=== PATIENT | male | born 1950 | race Caucasian/White ===

== ENCOUNTER 2019-01-22 13:57 | Inpatient (IN) | payer BC, MEDICARE ==
[2019-01-22] MEDS ORDERED: NITROGLYCERIN OINT 1 INCH/GM PACKET TOPICAL STA (15:00)
[2019-01-22] MEDS ORDERED: ASPIRIN 81 MG PO STA (15:00)
--- NOTE | 2019-01-22 15:10 | ED ---
General Adult HPI - General Chief complaint: Chest Pain Stated complaint: Abnormal EKG sent by Time Seen by Provider: 01/22/19 14:05 Source: patient, RN notes reviewed Mode of arrival: ambulatory Limitations: no limitations - History of Present Illness Initial comments: This is a 68-year-old male who presents emergency department with past medical history significant for heart attack in the past. Patient states he's been having intermittent chest pain over the last few weeks but today the pain got significant to the point where he thought he needed to be seen per patient states his pain reminded him of pain in his had the past when he had heart problem. Patient denies any radiation of the pain. Patient denies any difficulty breathing first breath per patient denies any diaphoretic episodes. Patient denies any nausea. Patient denies abdominal pain. Patient denies vomiting diarrhea per patient denies any recent fever chills or cough. Patient denies any calf pain or leg swelling. - Related Data Home Medications Medication Instructions Recorded Confirmed Aspirin EC [Ecotrin Low Dose] 81 mg PO DAILY 01/22/19 01/22/19 Atenolol [Tenormin] 25 mg PO DAILY 01/22/19 01/22/19 Atorvastatin [Lipitor] 20 mg PO DAILY 01/22/19 01/22/19 Cyanocobalamin [Vitamin B-12] 500 mcg PO DAILY 01/22/19 01/22/19 Ibuprofen [Motrin Ib] 200 mg PO Q6HR PRN 01/22/19 01/22/19 Allergies Allergy/AdvReac Type Severity Reaction Status Date / Time No Known Allergies Allergy Verified 01/22/19 15:58 Review of Systems ROS Statement: Those systems with pertinent positive or pertinent negative responses have been documented in the HPI. ROS Other: All systems not noted in ROS Statement are negative. Past Medical History Past Medical History: Coronary Artery Disease (CAD), Hyperlipidemia, Myocardial Infarction ([place]) History of Any Multi-Drug Resistant Organisms: None Reported Past Surgical History: Heart Catheterization With Stent Additional Past Surgical History / Comment(s): club foot surgery Past Psychological History: No Psychological Hx Reported Smoking Status: Former smoker Past Alcohol Use History: None Reported Past Drug Use History: None Reported General Exam - General Exam Comments Initial Comments: GENERAL: Patient is well-developed and well-nourished. Patient is nontoxic and well- hydrated and is in no acute distress. ENT: Neck is soft and supple. No significant lymphadenopathy is noted. Oropharynx is clear. Moist mucous membranes. Neck has full range of motion without eliciting any pain. EYES: The sclera were anicteric and conjunctiva were pink and moist. Extraocular movements were intact and pupils were equal round and reactive to light. Eyelids were unremarkable. PULMONARY: Unlabored respirations. Good breath sounds bilaterally. No audible rales rhonchi or wheezing was noted. CARDIOVASCULAR: There is a regular rate and rhythm without any murmurs gallops or rubs. ABDOMEN: Soft and nontender with normal bowel sounds. No palpable organomegaly was noted. There is no palpable pulsatile mass. SKIN: Skin is clear with no lesions or rashes and otherwise unremarkable. NEUROLOGIC: Patient is alert and oriented x3. Cranial nerves II through XII are grossly intact. Motor and sensory are also intact. Normal speech, volume and content. Symmetrical smile. MUSCULOSKELETAL: Normal extremities with adequate strength and full range of motion. LYMPHATICS: No significant lymphadenopathy is noted PSYCHIATRIC: Normal psychiatric evaluation. Limitations: no limitations Course Vital Signs 01/22/19 01/22/19 01/22/19 14:05 15:14 16:00 Temperature 97.8 F Pulse Rate 67 67 66 Respiratory 18 18 18 Rate Blood Pressure 149/81 141/82 123/68 O2 Sat by Pulse 96 96 96 Oximetry Medical Decision Making - Medical Decision Making EKG shows sinus rhythm at [address] interval 216 QT interval is 402 QTC is 427 QRS is 92 per patient's EKG shows no ST segment elevation or depression or T wave abnormalities are noted. Chest x-ray shows no acute normalities. Patient was started on heparin for the unstable angina. I spoke with some physicians he agreed to admit the patient admitted the patient I continued heparin Nitropaste and aspirin on the floor. I consult cardiology - Lab Data Result diagrams: 01/22/19 15:42 01/22/19 15:42 Lab Results 01/22/19 01/22/19 01/22/19 Range/Units 15:42 15:42 15:42 WBC 6.6 (3.8-10.6) k/uL RBC 5.36 (4.30-5.90) m/uL Hgb 15.8 (13.0-17.5) gm/dL Hct 45.0 (39.0-53.0) % MCV 83.9 (80.0-100.0) fL MCH 29.5 (25.0-35.0) pg MCHC 35.2 (31.0-37.0) g/dL RDW 14.2 (11.5-15.5) % Plt Count 203 (150-450) k/uL Neutrophils % 64 % Lymphocytes % 21 % Monocytes % 7 % Eosinophils % 4 % Basophils % 0 % Neutrophils # 4.3 (1.3-7.7) k/uL Lymphocytes # 1.4 (1.0-4.8) k/uL Monocytes # 0.5 (0-1.0) k/uL Eosinophils # 0.3 (0-0.7) k/uL Basophils # 0.0 (0-0.2) k/uL PT 10.9 (9.0-12.0) sec INR 1.0 (<1.2) APTT 26.2 (22.0-30.0) sec Sodium 138 (137-145) mmol/L Potassium 4.7 (3.5-5.1) mmol/L Chloride 103 (98-107) mmol/L Carbon Dioxide 27 (22-30) mmol/L Anion Gap 8 mmol/L BUN 20 (9-20) mg/dL Creatinine 1.00 (0.66-1.25) mg/dL Est GFR (CKD-EPI)AfAm 88 (>60 ml/min/1.73 sqM) Est GFR (CKD-EPI)NonAf 77 (>60 ml/min/1.73 sqM) Glucose 97 (74-99) mg/dL Calcium 9.4 (8.4-10.2) mg/dL Magnesium 2.1 (1.6-2.3) mg/dL Total Bilirubin 0.9 (0.2-1.3) mg/dL AST 34 (17-59) U/L ALT 37 (21-72) U/L Alkaline Phosphatase 64 (38-126) U/L Troponin I (0.000-0.034) ng/mL Total Protein 7.3 (6.3-8.2) g/dL Albumin 4.2 (3.5-5.0) g/dL 01/22/19 Range/Units 15:42 WBC (3.8-10.6) k/uL RBC (4.30-5.90) m/uL Hgb (13.0-17.5) gm/dL Hct (39.0-53.0) % MCV (80.0-100.0) fL MCH (25.0-35.0) pg MCHC (31.0-37.0) g/dL RDW (11.5-15.5) % Plt Count (150-450) k/uL Neutrophils % % Lymphocytes % % Monocytes % % Eosinophils % % Basophils % % Neutrophils # (1.3-7.7) k/uL Lymphocytes # (1.0-4.8) k/uL Monocytes # (0-1.0) k/uL Eosinophils # (0-0.7) k/uL Basophils # (0-0.2) k/uL PT (9.0-12.0) sec INR (<1.2) APTT (22.0-30.0) sec Sodium (137-145) mmol/L Potassium (3.5-5.1) mmol/L Chloride (98-107) mmol/L Carbon Dioxide (22-30) mmol/L Anion Gap mmol/L BUN (9-20) mg/dL Creatinine (0.66-1.25) mg/dL Est GFR (CKD-EPI)AfAm (>60 ml/min/1.73 sqM) Est GFR (CKD-EPI)NonAf (>60 ml/min/1.73 sqM) Glucose (74-99) mg/dL Calcium (8.4-10.2) mg/dL Magnesium (1.6-2.3) mg/dL Total Bilirubin (0.2-1.3) mg/dL AST (17-59) U/L ALT (21-72) U/L Alkaline Phosphatase (38-126) U/L Troponin I <0.012 (0.000-0.034) ng/mL Total Protein (6.3-8.2) g/dL Albumin (3.5-5.0) g/dL Critical Care Time Critical Care Time: Yes Total Critical Care Time: 35 Disposition Clinical Impression: Unstable angina pectoris Disposition: ADMITTED IP TO THIS HOSP Is patient prescribed a controlled substance at d/c from ED?: No Referrals: Oscar Spence MD [Primary Care Provider] - 1-2 days Time of Disposition: 16:36
--- NOTE | 2019-01-22 16:07 | XR ---
EXAMINATION TYPE: XR chest 2V DATE OF EXAM: 01/22/2019 COMPARISON: NONE HISTORY: Chest pain TECHNIQUE: Frontal and lateral views of the chest are obtained. FINDINGS: Strand-like densities are present at the left lung base likely reflects scarring. Aorta is dense. There are cardiac leads. There is no focal air space opacity, pleural effusion, or pneumothora x seen. The cardiac silhouette size is within normal limits. The osseous structures are intact. IMPRESSION: Probable subsegmental atelectasis or scarring.
[2019-01-22 16:14] LABS: Partial Thromboplastin Time 26.2 sec (22.0-30.0); Prothrombin Time 10.9 sec (9.0-12.0)
[2019-01-22 16:15] LABS: Albumin 4.2 g/dL (3.5-5.0); Calcium 9.4 mg/dL (8.4-10.2); Magnesium 2.1 mg/dL (1.6-2.3); Potassium 4.7 mmol/L (3.5-5.1); Total Bilirubin 0.9 mg/dL (0.2-1.3); Total Protein 7.3 g/dL (6.3-8.2)
[2019-01-22 16:22] LABS: Basophils % (A) 0 %; Eosinophils # (A) 0.3 k/uL (0-0.7); Eosinophils % (A) 4 %; HGB 15.8 gm/dL (13.0-17.5); Lymphocytes # (A) 1.4 k/uL (1.0-4.8); Lymphocytes % (A) 21 %; MCH 29.5 pg (25.0-35.0); MCHC 35.2 g/dL (31.0-37.0); MCV 83.9 fL (80.0-100.0); Mean Platelet Volume 6.9; Monocytes # (A) 0.5 k/uL (0-1.0); Monocytes % (A) 7 %; Neutrophils # (A) 4.3 k/uL (1.3-7.7); Neutrophils % (A) 64 %; Platelet Count 203 k/uL (150-450); RBC 5.36 m/uL (4.30-5.90); RDW 14.2 % (11.5-15.5); WBC 6.6 k/uL (3.8-10.6)
[2019-01-22] MEDS ORDERED: HEPARIN SODIUM,PORCINE 5,000 UNIT/ML 1 ML VIAL IV ONE (16:34)
[2019-01-22] MEDS ORDERED: NITROGLYCERIN SL TABS 0.4 MG TAB SUBLINGUAL PRN (16:37)
[2019-01-22] MEDS ORDERED: NALOXONE 0.4 MG/ML 1 ML VIAL IV PRN (16:54)
[2019-01-22] MEDS ORDERED: MORPHINE SULFATE 2 MG/ML SYRINGE IV PRN (16:54)
[2019-01-22] MEDS: HEPARIN SOD,PORK IN 0.45% NACL 25,000 UNIT in 0.45% NACL 1 250ML.BAG IV SCH (17:02)
--- NOTE | 2019-01-22 18:36 | P.HPIM ---
History of Present Illness H&P Date: 01/22/19 Chief Complaint: Chest pain 68-year-old male with PMH of HI, status post dental presents the ED for feelings of chest discomfort. Patient denies any chest pain. Patient describes his chest discomfort as "indigestion", and "uncomfortable feeling". Patient reports suffering an HI 15 years ago status post, had similar symptoms during that time. Patient reports taking a nitro tablet which resolved all symptoms. This prompted him to come to go to his PCPs clinic. An EKG was performed to Dr. House's office, found to be abnormal. Patient denies any headache, lower extremity edema, nausea, vomiting, fever, cough, chest pain, shortness of breath, palpitations, changes in urination or bowel habits. Of note, patient reports having a bout of pneumonia 2 weeks ago that was treated with antibiotics by mouth. CBC and CMP were unremarkable. Troponin is less than 0.012, EKG showing sinus rhythm with first-degree AV block. Chest pressure negative for acute process. Review of Systems All systems: negative Past Medical History Past Medical History: Coronary Artery Disease (CAD), Hyperlipidemia, Myocardial Infarction ([place]) History of Any Multi-Drug Resistant Organisms: None Reported Past Surgical History: Heart Catheterization With Stent Additional Past Surgical History / Comment(s): club foot surgery Past Psychological History: No Psychological Hx Reported Smoking Status: Former smoker Past Alcohol Use History: None Reported Past Drug Use History: None Reported Medications and Allergies Home Medications Medication Instructions Recorded Confirmed Type Aspirin EC [Ecotrin Low Dose] 81 mg PO DAILY 01/22/19 01/22/19 History Atenolol [Tenormin] 25 mg PO DAILY 01/22/19 01/22/19 History Atorvastatin [Lipitor] 20 mg PO DAILY 01/22/19 01/22/19 History Cyanocobalamin [Vitamin B-12] 500 mcg PO DAILY 01/22/19 01/22/19 History Ibuprofen [Motrin Ib] 200 mg PO Q6HR PRN 01/22/19 01/22/19 History Allergies Allergy/AdvReac Type Severity Reaction Status Date / Time No Known Allergies Allergy Verified 01/22/19 15:58 Physical Exam Vitals: Vital Signs Temp Pulse Resp BP Pulse Ox 01/22/19 17:01 62 16 113/68 98 01/22/19 16:00 66 18 123/68 96 01/22/19 15:14 67 18 141/82 96 01/22/19 14:05 97.8 F 67 18 149/81 96 Intake and Output 01/22/19 01/22/19 01/22/19 06:59 14:59 22:59 Other: Weight 115.212 kg General: [non toxic], [no distress], [appears at stated age] Derm: [warm], [dry] Head: [atraumatic], [normocephalic], [symmetric] Eyes: [EOMI], [no lid lag], [anicteric sclera] Mouth: [no lip lesion], [mucus membranes moist] Cardiovascular: [S1S2 reg], [no murmur], [positive posterior tibial pulse bilateral], Lungs: [CTA bilateral], [no rhonchi, no rales] , [no accessory muscle use] Abdominal: [soft], [ nontender to palpation], [no guarding], [no appreciable organomegaly] Ext: [no gross muscle atrophy], [no edema], [no contractures] Neuro: [ CN II-XI grossly intact], [no focal neuro deficits] Psych: [Alert], [oriented], [appropriate affect] Results CBC & Chem 7: 01/22/19 15:42 01/22/19 15:42 Thrombosis Risk Factor Assmnt - Choose All That Apply Any of the Below Risk Factors Present?: Yes Each Factor Represents 1 point: Obesity (BMI >25) Each Risk Factor Represents 2 Points: Age 61-74 years Thrombosis Risk Factor Assessment Total Risk Factor Score: 3 Thrombosis Risk Factor Assessment Level: Moderate Risk Assessment and Plan Assessment: Assessment and Plan 1. Chest pain 2. Hypertension 3. Hyperlipidemia 1. Described as indigestion but with risk factors. Troponin less than 0.02, EKG showing sinus rhythm with first-degree AV block. Chest x-ray negative for acute process. Trend 2 troponin/EKG to rule out ACS. Follow-up echocardiogram results. Telemetry monitoring. Start heparin drip. Pain management with Nitrostat, morphine. Follow cardiology consult 2. BP 123/68. Continue atenolol. Monitor vitals, adjust medications as necessary. 3. Follow lipid panel. Start Lipitor 20 mg by mouth daily. Patient minute for chest pain, rule out acute coronary syndrome. Cardiology on consult. Patient like to remain full code.
[2019-01-22] MEDS: NITROGLYCERIN OINT 1 INCH/GM PACKET TOPICAL SCH ×2 (18:55→23:45)
[2019-01-22] MEDS ORDERED: HEPARIN SODIUM,PORCINE 5,000 UNIT/ML 1 ML VIAL IV PRN (23:19)
[2019-01-23] MEDS: NITROGLYCERIN OINT 1 INCH/GM PACKET TOPICAL SCH ×3 (06:43→18:19)
[2019-01-23 06:55] LABS: Cholesterol 115 mg/dL (<200); HDL Cholesterol 38 mg/dL (40-60); LDL Cholesterol,Calculated 59 mg/dL (0-99); Triglycerides 92 mg/dL (<150)
--- NOTE | 2019-01-23 08:25 | P.PN ---
Subjective Progress Note Date: 01/23/19 Principal diagnosis: Chest discomfort Patient was seen and examined. No acute events overnight. Patient reports resolution of his chest discomfort. No shortness of breath or palpitations. No nausea or vomiting. He denies any chest pain. Objective - Vital Signs Vital signs: Vital Signs Temp 97.5 F L 01/23/19 08:00 Pulse 67 01/23/19 08:00 Resp 18 01/23/19 08:00 BP 113/66 01/23/19 08:00 Pulse Ox 97 01/23/19 08:00 Intake & Output 01/22/19 01/23/19 01/23/19 18:59 06:59 18:59 Intake Total 67.167 Balance 67.167 Weight 115.212 kg Intake: Intake, IV Titration 67.167 Amount Heparin Sod,Pork in 0.45% 67.167 NaCl 25,000 unit In 0.45 % NaCl 1 250ml.bag @ 8.68 UNITS/KG/HR 10 mls/hr IV .Q24H [facility] Rx#:[id number] Other: # Voids 2 - Exam General: [non toxic], [no distress], [appears at stated age] Derm: [warm], [dry] Head: [atraumatic], [normocephalic], [symmetric] Eyes: [EOMI], [no lid lag], [anicteric sclera] Mouth: [no lip lesion], [mucus membranes moist] Cardiovascular: [S1S2 reg], [no murmur], [positive posterior tibial pulse bilateral], Lungs: [CTA bilateral], [no rhonchi, no rales] , [no accessory muscle use] Abdominal: [soft], [ nontender to palpation], [no guarding], [no appreciable organomegaly] Ext: [no gross muscle atrophy], [no edema], [no contractures] Neuro: [no focal neuro deficits] Psych: [Alert], [oriented], [appropriate affect] - Labs CBC & Chem 7: 01/22/19 15:42 01/22/19 15:42 Labs: Abnormal Lab Results - Last 24 Hours (Table) 01/22/19 01/23/19 01/23/19 Range/Units 22:31 05:43 05:43 APTT 45.6 H 70.2 H (22.0-30.0) sec HDL Cholesterol 38 L (40-60) mg/dL Assessment and Plan Assessment: Assessment and Plan 1. Chest pain 2. Hypertension 3. Hyperlipidemia 1. Described as indigestion but with risk factors. Troponin less than 0.012 3, EKG showing sinus rhythm with first-degree AV block. Chest x-ray negative for acute process. ACS ruled out. Follow-up echocardiogram results. Telemetry monitoring. Start heparin drip. Pain management with Nitrostat, morphine. Discuss with cardiology Dr. Biggs, plans for angiogram later today or tomorrow. 2. BP 113/66. Continue atenolol. Monitor vitals, adjust medications as necessary. 3. Lipid panel is within normal limits with LDL 59. Start Lipitor 20 mg by mouth daily. Discussed with cardiology, plans for coronary catheterization either today or tomorrow.
[2019-01-23] MEDS ORDERED: ATORVASTATIN 40 MG TAB PO SCH (09:00)
[2019-01-23] MEDS ORDERED: ATORVASTATIN 20 MG TAB PO SCH (09:00)
[2019-01-23] MEDS: ATENOLOL 25 MG TAB PO SCH (09:01)
[2019-01-23] MEDS: ASPIRIN 325 MG TAB PO SCH (09:01)
--- NOTE | 2019-01-23 09:49 | P.CRDCN ---
History of Present Illness Consult date: 01/23/19 Consult reason: chest pain History of present illness: HPI: Patient is a 68-year-old male with past medical history of coronary artery di sease status post stenting, hypertension, and dyslipidemia, who presents with new onset of epigastric pain. This had been going on for several days therefore he went to his primary care physician's office and due to abnormal EKG, he was sent to the emergency room. His chest pain improved with sublingual nitroglycerin that was , incompletely resolved with Nitropaste in the emergency room. Troponins were negative 3. EKG showed sinus rhythm with first-degree AV block, no acute ST or T-wave changes. He states the chest discomfort that he had been feeling was similar to the sensation prior to his previous stent was 15 years ago, however that pain also worsened with exertion. On exam he is resting comfortably and has been without any chest discomfort. He feels as though he could walk the halls today without any symptoms. He initially followed with a cat scan tech out of [place] however he has not seen him in several years due to being asymptomatic. He does report that he takes aspirin and a statin every day. PAST MEDICAL HISTORY: CAD status post stenting, hypertension, dyslipidemia REVIEW OF SYSTEMS: No Fever or chills. No cough or expectoration. No diaphoresis. Patient denies headache, dizziness, blurred vision, double vision. Patient denies any stomach discomfort. No nausea, vomiting. No hematochezia. No hematemesis. Denies any black stools or blood in his stools. Denies dysuria or hematuria. No muscle weakness or numbness. PHYSICAL EXAMINATION: This is a 68-year-old male in no apparent distress at the time of my examination. HEENT: Head is atraumatic, normocephalic. Pupils are equal, round. Sclerae anicteric. Conjunctivae are clear. Mucous membranes of the mouth are moist. Neck is supple. There is no jugular venous distention. No carotid bruit is heard. CHEST EXAMINATION: Lungs are clear to auscultation. No chest wall tenderness is noted on palpation or with deep breathing. HEART EXAMINATION: Heart regular rate and rhythm. S1, S2 heard. No murmurs, gallops or rub. ABDOMEN: Soft, nontender. Bowel sounds are heard. No organomegaly noted. EXTREMITIES: 2+ peripheral pulses with no evidence of peripheral edema and no calf tenderness noted. NEUROLOGIC EXAMINATION: Patient is awake, alert and oriented x3. LABORATORY DATA: Troponins negative 3, HDL 38, LDL 59, triglycerides 92, sodium 138 potassium 147, creatinine 1.0, magnesium 2.1. . Past Medical History Past Medical History: Coronary Artery Disease (CAD), Hyperlipidemia, Myocardial Infarction ([place]) Last Myocardial Infarction Date:: 2003 History of Any Multi-Drug Resistant Organisms: None Reported Past Surgical History: Heart Catheterization With Stent Additional Past Surgical History / Comment(s): club foot surgery, colonoscopy Past Anesthesia/Blood Transfusion Reactions: No Reported Reaction Date of Last Stent Placement:: 2003 Past Psychological History: No Psychological Hx Reported Smoking Status: Former smoker Past Alcohol Use History: None Reported Additional Past Alcohol Use History / Comment(s): pt smoked ocassionaly as a teen Past Drug Use History: None Reported - Past Family History Father Additional Family Medical History / Comment(s): father of cardiac occulsion Medications and Allergies Home Medications Medication Instructions Recorded Confirmed Type Aspirin EC [Ecotrin Low Dose] 81 mg PO DAILY 01/22/19 01/22/19 History Atenolol [Tenormin] 25 mg PO DAILY 01/22/19 01/22/19 History Atorvastatin [Lipitor] 20 mg PO DAILY 01/22/19 01/22/19 History Cyanocobalamin [Vitamin B-12] 500 mcg PO DAILY 01/22/19 01/22/19 History Ibuprofen [Motrin Ib] 200 mg PO Q6HR PRN 01/22/19 01/22/19 History Allergies Allergy/AdvReac Type Severity Reaction Status Date / Time No Known Allergies Allergy Verified 01/22/19 15:58 Physical Exam Vitals: Vital Signs Temp Pulse Pulse Resp BP BP Pulse Ox 01/23/19 08:00 97.5 F L 67 18 113/66 97 01/23/19 04:00 63 18 01/23/19 03:57 98.5 F 63 18 111/62 96 01/23/19 00:00 98.5 F 67 16 116/67 97 01/22/19 23:28 59 L 18 01/22/19 20:00 59 L 18 01/22/19 18:31 97.9 F 59 L 18 136/78 100 01/22/19 17:01 62 16 113/68 98 01/22/19 16:00 66 18 123/68 96 01/22/19 15:14 67 18 141/82 96 01/22/19 14:05 97.8 F 67 18 149/81 96 Intake and Output 01/22/19 01/23/19 01/23/19 22:59 06:59 14:59 Intake Total 67.167 Balance 67.167 Intake: Intake, IV Titration 67.167 Amount Heparin Sod,Pork in 0.45% 67.167 NaCl 25,000 unit In 0.45 % NaCl 1 250ml.bag @ 8.68 UNITS/KG/HR 10 mls/hr IV .Q24H [facility] Rx#:[id number] Other: Voiding Method Toilet # Voids 2 Results 01/22/19 15:42 01/22/19 15:42 Cardiac Enzymes 01/22/19 01/22/19 01/22/19 Range/Units 15:42 15:42 22:31 AST 34 (17-59) U/L Troponin I <0.012 <0.012 (0.000-0.034) ng/mL 01/23/19 Range/Units 03:25 AST (17-59) U/L Troponin I <0.012 (0.000-0.034) ng/mL Coagulation 01/22/19 01/22/19 01/23/19 Range/Units 15:42 22:31 05:43 PT 10.9 (9.0-12.0) sec APTT 26.2 45.6 H 70.2 H (22.0-30.0) sec Lipids 01/23/19 Range/Units 05:43 Triglycerides 92 (<150) mg/dL Cholesterol 115 (<200) mg/dL HDL Cholesterol 38 L (40-60) mg/dL CBC 01/22/19 Range/Units 15:42 WBC 6.6 (3.8-10.6) k/uL RBC 5.36 (4.30-5.90) m/uL Hgb 15.8 (13.0-17.5) gm/dL Hct 45.0 (39.0-53.0) % Plt Count 203 (150-450) k/uL Comprehensive Metabolic Panel 01/22/19 Range/Units 15:42 Sodium 138 (137-145) mmol/L Potassium 4.7 (3.5-5.1) mmol/L Chloride 103 (98-107) mmol/L Carbon Dioxide 27 (22-30) mmol/L BUN 20 (9-20) mg/dL Creatinine 1.00 (0.66-1.25) mg/dL Glucose 97 (74-99) mg/dL Calcium 9.4 (8.4-10.2) mg/dL AST 34 (17-59) U/L ALT 37 (21-72) U/L Alkaline Phosphatase 64 (38-126) U/L Total Protein 7.3 (6.3-8.2) g/dL Albumin 4.2 (3.5-5.0) g/dL Current Medications Generic Name Dose Route Start Last Admin Trade Name Freq PRN Reason Stop Dose Admin Aspirin 325 mg 01/23/19 09:00 01/23/19 09:01 Aspirin PO 325 mg DAILY [facility] Administration Atenolol 25 mg 01/23/19 09:00 01/23/19 09:01 Tenormin PO 25 mg DAILY [facility] Administration Atorvastatin Calcium 40 mg 01/23/19 09:00 01/23/19 09:01 Lipitor PO 40 mg DAILY [facility] Administration Heparin Sodium (Porcine) 0 unit 01/22/19 23:19 01/22/19 23:45 Heparin IV 2,875 unit PER PROTOCOL PRN Administration Low PTT Protocol Heparin Sodium/Sodium Chloride 250 mls @ 10 mls/hr 01/22/19 16:45 01/22/19 23:45 25,000 unit/ Sodium Chloride IV 10.68 units/kg/hr .Q24H [facility] 12.305 mls/hr Titration Protocol 8.68 UNITS/KG/HR Morphine Sulfate 2 mg 01/22/19 16:54 Morphine Sulfate (Inj) IV Q4HR PRN Severe Pain Naloxone HCl 0.2 mg 01/22/19 16:54 Narcan IV Q2M PRN Opioid Reversal Nitroglycerin 1 inch 01/22/19 18:00 01/23/19 06:43 Nitro-Bid Oint TOPICAL 1 inch Q6HR [facility] Administration Nitroglycerin 0.4 mg 01/22/19 16:37 Nitrostat SUBLINGUAL Q5M PRN Chest Pain Intake and Output 01/22/19 01/23/19 01/23/19 22:59 06:59 14:59 Intake Total 67.167 Balance 67.167 Intake: Intake, IV Titration 67.167 Amount Heparin Sod,Pork in 0.45% 67.167 NaCl 25,000 unit In 0.45 % NaCl 1 250ml.bag @ 8.68 UNITS/KG/HR 10 mls/hr IV .Q24H [facility] Rx#:[id number] Other: Voiding Method Toilet # Voids 2 01/22/19 15:42 01/22/19 15:42 EKG Interpretations (text) Sinus rhythm with no acute ST or T-wave changes. Assessment and Plan Plan: FINAL ASSESSMENT AND PLAN: 1. CAD status post stenting, unknown history as he followed with cat scan tech out of [facility]. 2. Chest discomfort, resolved with nitroglycerin. 3. Hypertension. 4. Dyslipidemia, LDL 59. PLAN: We will continue heparin drip and Nitropaste. Due to unknown history in last recent testing and symptoms similar prior to his previous stenting, we will proceed with coronary angiography. Dr. Nickerson will perform this procedure tomorrow morning. He will be nothing by mouth after midnight for this procedu re. We will also increase his atorvastatin 80 mg.
[2019-01-23] MEDS: HEPARIN SOD,PORK IN 0.45% NACL 25,000 UNIT in 0.45% NACL 1 250ML.BAG IV SCH (14:46)
[2019-01-24] MEDS: NITROGLYCERIN OINT 1 INCH/GM PACKET TOPICAL SCH ×3 (00:45→11:27)
[2019-01-24] MEDS: ASPIRIN 325 MG TAB PO SCH (06:59)
[2019-01-24] MEDS: ATORVASTATIN 80 MG TAB PO SCH (07:01)
[2019-01-24] MEDS ORDERED: HEPARIN SODIUM 1,000 UN/ML (10ML VL) ONE ×2 (07:14→08:31)
[2019-01-24] MEDS ORDERED: VERAPAMIL 2.5 MG/ML 2 ML AMP ONE (07:14)
[2019-01-24] MEDS ORDERED: LIDOCAINE 1% INJ 10MG/ML (20 ML MDV) ONE (07:14)
[2019-01-24] MEDS ORDERED: SODIUM CHLORIDE 0.9% 500 ML 500 ML IV ONE (07:30)
[2019-01-24] MEDS: MIDAZOLAM 2 MG/2 ML VIAL IV ONE ×2 (08:06→08:14)
[2019-01-24] MEDS ORDERED: LIDOCAINE 1% INJ 10MG/ML (20 ML MDV) SQ ONE (08:08)
[2019-01-24] MEDS: VERAPAMIL SYRINGE (5 MG/10 ML) INTRAARTER ONE ×2 (08:09→08:46)
[2019-01-24] MEDS ORDERED: HEPARIN SODIUM 1,000 UN/ML (10ML VL) IV ONE ×2 (08:10→08:37)
[2019-01-24] MEDS ORDERED: CLOPIDOGREL 75 MG TAB ONE (08:36)
[2019-01-24] MEDS ORDERED: CLOPIDOGREL 75 MG TAB PO ONE (08:40)
[2019-01-24] MEDS ORDERED: NITROGLYCERIN 1000MCG/10ML SYRINGE INTRACORON ONE (08:42)
[2019-01-24] MEDS ORDERED: IOPAMIDOL-370 125ML BTL INJ ONE (08:49)
[2019-01-24] MEDS ORDERED: ZOLPIDEM 5 MG TAB PO PRN (08:55)
[2019-01-24] MEDS ORDERED: MAG HYDROX/AL HYDROX/SIMETH 30 ML CUP PO PRN (08:55)
[2019-01-24] MEDS ORDERED: ATROPINE SULFATE 0.1 MG/ML 10ML SYRINGE IV PRN (08:55)
[2019-01-24] MEDS ORDERED: RX INFO: IV CONTRAST WAS GIVEN 1 EACH MISC MISCELLANE PRN (08:55)
[2019-01-24] MEDS ORDERED: NITROGLYCERIN SL TABS 0.4 MG TAB SUBLINGUAL PRN (08:55)
[2019-01-24] MEDS ORDERED: SODIUM CHLORIDE 0.9% 1,000 ML IV SCH (09:00)
[2019-01-24 09:23] LABS: Glucose,Whole Blood 98 mg/dL (75-99)
--- NOTE | 2019-01-24 09:36 | CC ---
CARDIAC CATHETERIZATION REPORT DATE OF SERVICE: January 24, 2019 PERFORMING PHYSICIAN: Vikas Nickerson MD, slp. PROCEDURE PERFORMED: 1. Selective right and left coronary angiogram. 2. Left heart catheterization. 3. Fractional flow reserve FFR of the LAD. 4. Successful stenting of the mid to distal LAD using 2.25 x 15 mm Xience drug-eluting stent with an excellent angiographic results and reduction of stenosis from 70% to 0%. INDICATION: This is a 68-year-old gentleman with history of coronary artery disease and prior stenting of the LAD as well as hypertension and dyslipidemia who presented to the hospital with symptoms of indigestion, reminded him with what he had before the last coronary stenting. The symptoms are of new onset and intermittent and sometimes exertional. The patient was seen and evaluated by Dr. Biggs who recommended proceeding with a coronary angiogram. APPROACH: Right radial artery. COMPLICATION: None. LEVEL OF SEDATION: Moderate with sedation length of 42 minutes. PROCEDURE DESCRIPTION: After obtaining an informed consent, the patient was brought to the cardiac cardiac catheterization technician. The right radial artery was cannulated using micropuncture technique, the micropuncture wire passed easily then I placed a 6-Tajik sheath, 11 cm in the right radial artery. I did give the patient 2 mg of verapamil IA and 10,000 units of heparin IV. Additional 3000 units of heparin was given during the procedure with continuous ACT monitoring as well. After that, I did an FFR of the LAD as well as stenting of the LAD. Please see a separate paragraph for that. SELECTIVE CORONARY ANGIOGRAM: 1. The right coronary artery is a large caliber vessel. It is a dominant vessel and appeared to be angiographically normal. In the midportion gives rise into acute marginal branch, which seems to be angiographically normal and distally bifurcates into PDA and PLV branches both appeared to be angiographically normal. 2. The left main is angiographically normal. It bifurcates into left circumflex and left anterior descending artery. 3. The left circumflex is a large caliber vessel. It is a nondominant vessel. The proximal left circumflex appeared to be angiographically normal. It gives rise into the first and second obtuse marginal branches. The proximal portion of first and second obtuse marginal branches appeared to have disease in the range of 40% to 50% The left circumflex continues after that as a moderate caliber vessel in the AV groove. It distally gives rise into a small PDA branch. 4. The proximal LAD is stented. The stent has mild in-stent restenosis. The mid LAD appeared to be angiographically normal. The mid to distal LAD has a lesion appeared to be hazy, seems to be in the range of 60% to 70%. We did FFR that lesion and that came in to be ischemic and that will be explained in this report. HEMODYNAMICS: The left ventricular end-diastolic pressure was about 8 mmHg with mild gradient across the aortic valve. The peak to peak gradient across the valve was 8 mmHg. FFR OF THE LAD WELL PCI OF THE LAD: Anticoagulation was continued using the heparin with ACT checked before we inserted the wire as well as ACT was performed by the end of the procedure. We gave additional 3000 units of heparin IV. That was given at the beginning of the FFR. After that, after zeroing the Doppler wire and equalizing between the Doppler wire and the guiding catheter which was JL 3.5 guiding catheter, we did FFR per IV adenosine infusion and the FFR came in to be at 0.79 without even inducing hyperemia with adenosine. Because of that, I decided to stent the LAD. I did direct stenting of the LAD using 2.25 x 15 mm Xience drug-eluting stent where the stent was positioned under fluoroscopy guidance and deployed under 10 atmospheres for 20 seconds with the following angiogram showing good angiographic results with reduction of stenosis from 70% to 0%. At that point, the procedure was completed without any complication. CONCLUSION: 1. Patent stent in the proximal left anterior descending artery. 2. Intermediate to severe disease involving the mid to distal LAD. FFR was applied and came in to be ischemic at 0.79. 3. Successful stenting of the mid to distal LAD using 2.25 x 15 mm Xience FRANDY with good angiographic results and reduction of stenosis from 70% to 0%. 4. Normal left ventricular end-diastolic pressure. 5. Eight mmHg peak to peak gradient across the aortic valve consistent with possibly mild aortic stenosis. POSTPROCEDURE MANAGEMENT: 1. Maximize medical treatment. 2. Risk factors modifications. 3. Aggressive cholesterol control. 4. Dual anti-platelet therapy. 5. Standard right radial access care. 6. Follow up with the patient. MMODL / IJN: [id number] /
--- NOTE | 2019-01-24 09:41 | LTR ---
DATE OF SERVICE: January 24, [address] Spence: Mr. Mack Doyle presented to [facility] with chest discomfort and he underwent a heart catheterization and was found to have severe disease involving the mid to distal LAD where he underwent successful stenting of the mid to distal LAD with good angiographic results and without any complication. Thank you for allowing us to participate in his care and please do not hesitate to call if you have any questions or concerns. MMODL / IJN: [id number] /
[2019-01-24 10:37] VITALS: BMI 29.0
[2019-01-24] MEDS: ATENOLOL 25 MG TAB PO SCH (11:43)
--- NOTE | 2019-01-24 12:26 | P.CRDCN ---
History of Present Illness History of present illness: Patient is a 68-year-old male with past medical disease CAD status post stenting, presented to the hospital with new onset of epigastric pain that resolved with nitroglycerin. EKG showed sinus rhythm with first-degree AV block. Troponins were negative 3. Due to patient's symptoms being similar to his previous stent placement, we recommended coronary angiography. Dr. Nickerson performed the procedure showed a 40-50% lesions in the proximal portion of the first and second obtuse marginal branches; the proximal LAD stent has mild in stent restenosis; in the mid to distal LAD and a 60-70% lesion, and which FFR revealed ischemia. Stent was placed to the mid distal LAD with good angiogra phic results. Patient interviewed and examined. He states he is doing well. He denies any chest discomfort, dyspnea, palpitations, dizziness is, or vertigo. Right radial procedure site is currently covered with TR band. PHYSICAL EXAMINATION: HEENT: Head is atraumatic, normocephalic. Pupils are equal, round. Sclerae anicteric. Conjunctivae are clear. Mucous membranes of the mouth are moist. Neck is supple. There is no jugular venous distention. No carotid bruit is heard. CHEST EXAMINATION: Lungs are clear to auscultation. No chest wall tenderness is noted on palpation or with deep breathing. HEART EXAMINATION: Heart regular rate and rhythm. S1, S2 heard. No murmurs, gallops or rub. ABDOMEN: Soft, nontender. Bowel sounds are heard. No organomegaly noted. EXTREMITIES: 2+ peripheral pulses with no evidence of peripheral edema and no calf tenderness noted. NEUROLOGIC EXAMINATION: Patient is awake, alert and oriented x3. FINAL ASSESSMENT AND PLAN: Coronary artery disease, stent placed to mid-distal LAD Hypertension Dyslipidemia, LDL 59 PLAN: We will increase the dose of atorvastatin 80 mg. Continue Plavix and aspirin 325 mg. Will be discharged on aspirin 81 mg. Follow-up in office thereafter. Past Medical History Past Medical History: Coronary Artery Disease (CAD), Hyperlipidemia, Myocardial Infarction ([place]) Last Myocardial Infarction Date:: 2003 History of Any Multi-Drug Resistant Organisms: None Reported Past Surgical History: Heart Catheterization With Stent Additional Past Surgical History / Comment(s): club foot surgery, colonoscopy Past Anesthesia/Blood Transfusion Reactions: No Reported Reaction Date of Last Stent Placement:: 2003 Past Psychological History: No Psychological Hx Reported Smoking Status: Former smoker Past Alcohol Use History: None Reported Additional Past Alcohol Use History / Comment(s): pt smoked ocassionaly as a teen Past Drug Use History: None Reported - Past Family History Father Additional Family Medical History / Comment(s): father of cardiac occulsion Medications and Allergies Home Medications Medication Instructions Recorded Confirmed Type Aspirin EC [Ecotrin Low Dose] 81 mg PO DAILY 01/22/19 01/22/19 History Atenolol [Tenormin] 25 mg PO DAILY 01/22/19 01/22/19 History Atorvastatin [Lipitor] 20 mg PO DAILY 01/22/19 01/22/19 History Cyanocobalamin [Vitamin B-12] 500 mcg PO DAILY 01/22/19 01/22/19 History Ibuprofen [Motrin Ib] 200 mg PO Q6HR PRN 01/22/19 01/22/19 History Allergies Allergy/AdvReac Type Severity Reaction Status Date / Time No Known Allergies Allergy Verified 01/22/19 15:58 Physical Exam Vitals: Vital Signs Temp Pulse Resp BP Pulse Ox 01/24/19 07:08 97.3 F L 78 18 158/80 96 01/24/19 04:42 97.7 F 68 18 120/66 97 01/24/19 03:27 81 17 01/24/19 01:26 98.6 F 75 18 108/64 95 01/24/19 00:00 68 17 01/23/19 20:00 74 17 01/23/19 19:18 98.9 F 65 18 117/64 96 01/23/19 16:00 98.7 F 72 16 123/73 96 01/23/19 13:08 96 Intake and Output 01/23/19 01/24/19 01/24/19 22:59 06:59 14:59 Intake Total 200 Balance 200 Intake: IV 200 Other: Voiding Method Toilet Toilet Urinal # Voids 1 1 Weight 108.2 kg 108.2 kg Results 01/22/19 15:42 01/22/19 15:42 Current Medications Generic Name Dose Route Start Last Admin Trade Name Freq PRN Reason Stop Dose Admin Al Hydroxide/Mg Hydroxide 30 ml 01/24/19 08:55 Maalox PO Q4HR PRN Heartburn Aspirin 325 mg 01/23/19 09:00 01/24/19 06:59 Aspirin PO 325 mg DAILY [facility] Administration Atenolol 25 mg 01/23/19 09:00 01/24/19 11:43 Tenormin PO 25 mg DAILY [facility] Administration Atorvastatin Calcium 80 mg 01/24/19 09:00 01/24/19 07:01 Lipitor PO 80 mg DAILY [facility] Administration Atropine Sulfate 0.5 mg 01/24/19 08:55 Atropine IV ONCE PRN Symptomatic Bradycardia Clopidogrel Bisulfate 75 mg 01/25/19 09:00 Plavix PO DAILY [facility] Heparin Sodium (Porcine) 0 unit 01/22/19 23:19 01/22/19 23:45 Heparin IV 2,875 unit PER PROTOCOL PRN Administration Low PTT Protocol Sodium Chloride 1,000 mls @ 100 mls/hr 01/24/19 09:00 01/24/19 11:10 Saline 0.9% IV 01/24/19 14:01 Not Given .Q10H [facility] Miscellaneous Information 1 each 01/24/19 08:55 Rx Info: Iv Contrast Was Given MISCELLANE 01/26/19 08:55 DAILY PRN Per Protocol Morphine Sulfate 2 mg 01/22/19 16:54 Morphine Sulfate (Inj) IV Q4HR PRN Severe Pain Naloxone HCl 0.2 mg 01/22/19 16:54 Narcan IV Q2M PRN Opioid Reversal Nitroglycerin 0.4 mg 01/22/19 16:37 Nitrostat SUBLINGUAL Q5M PRN Chest Pain Zolpidem Tartrate 5 mg 01/24/19 08:55 Ambien PO HS PRN Insomnia Intake and Output 01/23/19 01/24/19 01/24/19 22:59 06:59 14:59 Intake Total 200 Balance 200 Intake: IV 200 Other: Voiding Method Toilet Toilet Urinal # Voids 1 1 Weight 108.2 kg 108.2 kg Patient Weight 01/25/19 06:59 Weight 108.2 kg 01/22/19 15:42 01/22/19 15:42
--- NOTE | 2019-01-24 15:10 | P.PN ---
Subjective Progress Note Date: 01/24/19 Principal diagnosis: chest discomfort Patient was seen and examined. No acute events overnight. Underwent cardiac cath this morning, stent placed. Patient with no complaints seen post cath. He denies any chest pain, shortness of breath or palpitations. Looking forward to going home. Objective - Vital Signs Vital signs: Vital Signs Temp 97.7 F 01/24/19 12:00 Pulse 65 01/24/19 12:00 Resp 16 01/24/19 12:00 BP 129/91 01/24/19 12:00 Pulse Ox 93 L 01/24/19 12:00 Intake & Output 01/23/19 01/24/19 01/24/19 18:59 06:59 18:59 Intake Total 182.833 200 Balance 182.833 200 Weight 108.2 kg 108.2 kg Intake: IV 200 Intake, IV Titration 182.833 Amount Heparin Sod,Pork in 0.45% 182.833 NaCl 25,000 unit In 0.45 % NaCl 1 250ml.bag @ 8.68 UNITS/KG/HR 10 mls/hr IV .Q24H [facility] Rx#:[id number] Other: Voiding Method Toilet Toilet Urinal # Voids 1 1 - Exam General: [non toxic], [no distress], [appears at stated age] Derm: [warm], [dry] Head: [atraumatic], [normocephalic], [symmetric] Eyes: [EOMI], [no lid lag], [anicteric sclera] Mouth: [no lip lesion], [mucus membranes moist] Cardiovascular: [S1S2 reg], [no murmur], [positive posterior tibial pulse bilateral], Lungs: [CTA bilateral], [no rhonchi, no rales] , [no accessory muscle use] Abdominal: [soft], [ nontender to palpation], [no guarding], [no appreciable organomegaly] Ext: [no gross muscle atrophy], [no edema], [no contractures] Neuro: [no focal neuro deficits] Psych: [Alert], [oriented], [appropriate affect] - Labs CBC & Chem 7: 01/22/19 15:42 01/22/19 15:42 Assessment and Plan Assessment: Assessment and Plan 1. Chest pain 2. Hypertension 3. Hyperlipidemia 1. Described as indigestion but with risk factors. Troponin less than 0.012 3, EKG showing sinus rhythm with first-degree AV block. Chest x-ray negative for acute process. ACS ruled out. Follow-up echocardiogram results. Telemetry monitoring. cardiac cath shows 40-50% lesion of the proximal first and second obtuse marginal, proximal LAD with in-stent restenosis and mid to distal LAD 60- 70% with FFR revealing ischemia, stent placed. DC heparin drip, start Plavix. Pain management with Nitrostat, morphine. Follow cardiology recommendations. 2. BP 129/91. Continue atenolol. Monitor vitals, adjust medications as necessary. 3. Lipid panel is within normal limits with LDL 59. increase to Lipitor 80 mg by mouth daily. Stent placed. Plans for DC tomorrow.
[2019-01-24 17:14] LABS: Glucose,Whole Blood 105 mg/dL (75-99)
[2019-01-25] MEDS ORDERED: CLOPIDOGREL 75 MG TAB PO SCH (09:00)
[2019-01-25 09:07] VITALS: RESP 12
[2019-01-25] MEDS: ASPIRIN 325 MG TAB PO SCH (09:08)
[2019-01-25] MEDS: ATENOLOL 25 MG TAB PO SCH (09:09)
[2019-01-25] MEDS: ATORVASTATIN 80 MG TAB PO SCH ×2 (09:10→09:15)
[2019-01-25 12:24] VITALS: BP 121/84; PULSE 73; TEMP 97.8
--- NOTE | 2019-01-25 15:09 | P.PN ---
Subjective Patient is doing well. No chest discomfort dizziness lightheadedness since yesterday. Sitting comfortably in a chair Vitals are stable afebrile 97.8F pulse rate in the 70s Blood pressure 121/84 mmHg Heart sounds sounds to normal no murmurs or gallops no rub Breath sounds are clear no rhonchi no crackles in an extended is warm no edema Impression Coronary artery disease status post stenting on this admission No evidence for acute myocardial infarction on admission Suggest Patient may be discharged home today.. He is stable from a cardiac standpoint. He should continue dual antiplatelet therapy with a baby aspirin and Plavix 75 mg daily, atorvastatin and metoprolol I will see him in the next 2 weeks Objective - Vital Signs Vital signs: Vital Signs Temp 97.8 F 01/25/19 12:00 Pulse 73 01/25/19 12:00 Resp 12 01/25/19 12:00 BP 121/84 01/25/19 12:00 Pulse Ox 97 01/25/19 13:28 Intake & Output 01/24/19 01/25/19 01/25/19 18:59 06:59 18:59 Intake Total 340 240 Output Total 320 350 Balance 20 -350 240 Weight 108.2 kg 110.5 kg Intake: IV 340 .9 20 140 Oral 240 Output: Urine 320 350 Other: Voiding Method Urinal Urinal Toilet # Voids 1 3 - Labs CBC & Chem 7: 01/22/19 15:42 01/25/19 04:24 Labs: Abnormal Lab Results - Last 24 Hours (Table) 01/24/19 Range/Units 17:11 POC Glucose (mg/dL) 105 H (75-99) mg/dL
[2019-01-26] MEDS ORDERED: ASPIRIN 81 MG PO SCH (09:00)
== END 2019-01-25 15:15 | disposition home or self-care (01) | DRG 247 ==
LOC: EC 13:57 → 1SOBS 16:46 → OBSVTOIN 01-23 14:58 → 2SICU 01-24 09:17
PROVIDERS: ADMIT Hospitalist; ATTEND Hospitalist
PROC: B2151ZZ Fluoroscopy of Left Heart using Low Osmolar Contrast (ICD-10-PCS; 2019-01-24)
PROC: 4A033BC Measurement of Arterial Pressure, Coronary, Percutaneous Approach (ICD-10-PCS; 2019-01-24)
PROC: 027034Z Dilation of Coronary Artery, One Artery with Drug-eluting Intraluminal Device, Percutaneous Approach (ICD-10-PCS; principal; 2019-01-24 07:18)
PROC: 4A023N7 Measurement of Cardiac Sampling and Pressure, Left Heart, Percutaneous Approach (ICD-10-PCS; 2019-01-24 07:18)
PROC: B2111ZZ Fluoroscopy of Multiple Coronary Arteries using Low Osmolar Contrast (ICD-10-PCS; 2019-01-24 07:18)
DX: I25.110 Atherosclerotic heart disease of native coronary artery with unstable angina pectoris (principal); T82.855A Stenosis of coronary artery stent, initial encounter; I10 Essential (primary) hypertension; I44.0 Atrioventricular block, first degree; Y83.1 Surgical operation with implant of artificial internal device as the cause of abnormal reaction of the patient, or of later complication, without mention of misadventure at the time of the procedure; Y71.2 Prosthetic and other implants, materials and accessory cardiovascular devices associated with adverse incidents; E78.5 Hyperlipidemia, unspecified; Z87.891 Personal history of nicotine dependence; I25.2 Old myocardial infarction; Z79.82 Long term (current) use of aspirin; Z79.899 Other long term (current) drug therapy; Z87.01 Personal history of pneumonia (recurrent); Z82.49 Family history of ischemic heart disease and other diseases of the circulatory system
CPT/HCPCS: 36415; 71046; 80053; 80061; 82565; 83735; 84484; 85025; 85347; 85610; 85730; 93005; 93458; 93571; 96365; 96376; 99291; C1874

== ENCOUNTER 2019-01-27 08:08 | Inpatient (IN) | payer MEDICARE ==
[2019-01-27] MEDS ORDERED: PANTOPRAZOLE 40 MG/10 ML VIAL IVP STA (08:38)
--- NOTE | 2019-01-27 08:43 | ED ---
General Adult HPI - General Chief complaint: Syncope Stated complaint: syncope, weakness Time Seen by Provider: 01/27/19 08:17 Source: patient, RN notes reviewed, old records reviewed Mode of arrival: wheelchair Limitations: no limitations - History of Present Illness Initial comments: 68-year-old male presenting for evaluation of syncope. Patient had 2 episodes of lightheadedness and collapse this morning. He is 4 days status post coronary angiography with stenting. He was placed on Plavix and additional to his normal aspirin. Denies chest pain or dyspnea. Denies fever or chills. Denies cough or URI symptoms. Denies abdominal pain nausea vomiting. Patient states he had one bowel movement which was hard and brown followed by dark stool. He has no previous history of peptic ulcer disease or gastrointestinal hemorrhage. - Related Data Home Medications Medication Instructions Recorded Confirmed Aspirin EC [Ecotrin Low Dose] 81 mg PO DAILY 01/22/19 01/27/19 Atenolol [Tenormin] 25 mg PO DAILY 01/22/19 01/27/19 Cyanocobalamin [Vitamin B-12] 500 mcg PO DAILY 01/22/19 01/27/19 Previous Rx's Medication Instructions Recorded Atorvastatin [Lipitor] 80 mg PO DAILY #30 tab 01/25/19 Clopidogrel [Plavix] 75 mg PO DAILY #30 tab 01/25/19 Nitroglycerin Sl Tabs [Nitrostat] 0.4 mg SUBLINGUAL Q5M PRN #25 tab 01/25/19 Allergies Allergy/AdvReac Type Severity Reaction Status Date / Time No Known Allergies Allergy Verified 01/27/19 08:55 Review of Systems ROS Statement: Those systems with pertinent positive or pertinent negative responses have been documented in the HPI. ROS Other: All systems not noted in ROS Statement are negative. Past Medical History Past Medical History: Coronary Artery Disease (CAD), Hyperlipidemia, Myocardial Infarction ([place]) Last Myocardial Infarction Date:: 2003 History of Any Multi-Drug Resistant Organisms: None Reported Past Surgical History: Heart Catheterization With Stent Additional Past Surgical History / Comment(s): club foot surgery, colonoscopy Past Anesthesia/Blood Transfusion Reactions: No Reported Reaction Date of Last Stent Placement:: 2003 Past Psychological History: No Psychological Hx Reported Smoking Status: Former smoker Past Alcohol Use History: None Reported Past Drug Use History: None Reported - Past Family History Father Additional Family Medical History / Comment(s): father of cardiac occulsion General Exam Limitations: no limitations General appearance: alert, in no apparent distress Head exam: Present: atraumatic, normocephalic Eye exam: Present: normal appearance, PERRL ENT exam: Present: normal exam Neck exam: Present: normal inspection Respiratory exam: Present: normal lung sounds bilaterally. Absent: respiratory distress, wheezes Cardiovascular Exam: Present: regular rate, normal rhythm GI/Abdominal exam: Present: soft. Absent: distended, tenderness, guarding Rectal exam: Present: normal inspection, normal rectal tone, black stool Extremities exam: Present: normal inspection, normal capillary refill. Absent: pedal edema Neurological exam: Present: alert, oriented X3, CN II-XII intact. Absent: motor sensory deficit Skin exam: Present: warm, dry, intact, pallor. Absent: cyanosis, diaphoretic Course Vital Signs 01/27/19 01/27/19 01/27/19 08:11 08:46 09:05 Temperature 97.8 F Pulse Rate 107 H 86 Pulse Rate [ 95 Sitting Driver Trainee] Pulse Rate [ 90 Supine Driver Trainee] Respiratory 16 18 Rate Blood Pressure 103/74 111/80 Blood Pressure 94/71 [Right Arm Sitting] Blood Pressure 61/32 [Right Arm Standing] Blood Pressure 124/79 [Right Arm Supine] O2 Sat by Pulse 98 98 Oximetry EKG Findings - EKG Comments: EKG Findings:: EKG: Normal sinus rhythm, rate of 92, AL interval 204, QRS duration 88, QTC 447, T waves are upright, no ST segment elevation or depression. Medical Decision Making - Medical Decision Making 68-year-old male presenting 3 days status post heart cath for evaluation of several episodes of syncope. Initial vital signs are stable, patient is pale, there is concern for GI bleed. Patient states that he was started on Plavix. He is currently on aspirin and Plavix. Patient has orthostatic hypotension. Hemoglobin is 13 5 from 5 days prior 15.8. He has elevated BUN. His stool is heme positive. Case is discussed with cardiology DR. Biggs given the need for antiplatelet therapy with recent stent. Case discussed with Dr. Gil, will evaluate the patient, states that patient can be continued on antiplatelet therapy. Diagnosis: GI bleed - Lab Data Result diagrams: 01/27/19 08:30 01/27/19 08:30 Lab Results 0401/27/19 01/27/19 Range/Units 08:30 08:30 08:35 WBC 12.7 H (3.8-10.6) k/uL RBC 4.58 (4.30-5.90) m/uL Hgb 13.5 (13.0-17.5) gm/dL Hct 39.0 (39.0-53.0) % MCV 85.0 (80.0-100.0) fL MCH 29.4 (25.0-35.0) pg MCHC 34.6 (31.0-37.0) g/dL RDW 13.5 (11.5-15.5) % Plt Count 296 (150-450) k/uL Neutrophils % 77 % Lymphocytes % 13 % Monocytes % 7 % Eosinophils % 1 % Basophils % 0 % Neutrophils # 9.7 H (1.3-7.7) k/uL Lymphocytes # 1.7 (1.0-4.8) k/uL Monocytes # 0.9 (0-1.0) k/uL Eosinophils # 0.1 (0-0.7) k/uL Basophils # 0.0 (0-0.2) k/uL Sodium 141 (137-145) mmol/L Potassium 4.3 (3.5-5.1) mmol/L Chloride 112 H (98-107) mmol/L Carbon Dioxide 19 L (22-30) mmol/L Anion Gap 10 mmol/L BUN 55 H (9-20) mg/dL Creatinine 0.99 (0.66-1.25) mg/dL Est GFR (CKD-EPI)AfAm 89 (>60 ml/min/1.73 sqM) Est GFR (CKD-EPI)NonAf 77 (>60 ml/min/1.73 sqM) Glucose 155 H (74-99) mg/dL Calcium 9.3 (8.4-10.2) mg/dL Magnesium 1.8 (1.6-2.3) mg/dL Total Bilirubin 0.7 (0.2-1.3) mg/dL AST 33 (17-59) U/L ALT 60 (21-72) U/L Alkaline Phosphatase 47 (38-126) U/L Total Protein 6.7 (6.3-8.2) g/dL Albumin 3.9 (3.5-5.0) g/dL Stool Occult Blood Positive (Negative) Critical Care Time Critical Care Time: Yes Total Critical Care Time: 35 Disposition Clinical Impression: GI bleed Disposition: ADMITTED IP TO THIS [facility] Condition: Stable Is patient prescribed a controlled substance at d/c from ED?: No Referrals: Oscar Spence MD [Primary Care Provider] - 1-2 days Decision to Admit Reason: Admit from EC Decision Date: 01/27/19 Decision Time: 09:19
[2019-01-27 08:46] LABS: Basophils % (A) 0 %; Eosinophils # (A) 0.1 k/uL (0-0.7); Eosinophils % (A) 1 %; HGB 13.5 gm/dL (13.0-17.5); Lymphocytes # (A) 1.7 k/uL (1.0-4.8); Lymphocytes % (A) 13 %; MCH 29.4 pg (25.0-35.0); MCHC 34.6 g/dL (31.0-37.0); Mean Platelet Volume 6.6; Monocytes # (A) 0.9 k/uL (0-1.0); Monocytes % (A) 7 %; Neutrophils # (A) 9.7 k/uL (1.3-7.7); Neutrophils % (A) 77 %; Platelet Count 296 k/uL (150-450); RBC 4.58 m/uL (4.30-5.90); RDW 13.5 % (11.5-15.5); WBC 12.7 k/uL (3.8-10.6)
[2019-01-27 08:56] LABS: Albumin 3.9 g/dL (3.5-5.0); Calcium 9.3 mg/dL (8.4-10.2); Magnesium 1.8 mg/dL (1.6-2.3); Potassium 4.3 mmol/L (3.5-5.1); Total Bilirubin 0.7 mg/dL (0.2-1.3); Total Protein 6.7 g/dL (6.3-8.2)
[2019-01-27] MEDS ORDERED: PANTOPRAZOLE 40 MG/10 ML VIAL IVP SCH (09:00)
[2019-01-27 09:06] LABS: INR 1.1 (<1.2); Partial Thromboplastin Time 21.8 sec (22.0-30.0); Prothrombin Time 11.2 sec (9.0-12.0)
[2019-01-27] MEDS ORDERED: ONDANSETRON 4 MG/2 ML VIAL IVP PRN (09:07)
[2019-01-27] MEDS ORDERED: NALOXONE 0.4 MG/ML 1 ML VIAL IV PRN (09:07)
[2019-01-27] MEDS: SODIUM CHLORIDE 0.9% 1,000 ML IV SCH (09:30)
--- NOTE | 2019-01-27 11:50 | P.CONS ---
History of Present Illness - Reason for Consult Consult date: 01/27/19 [facility] Requesting physician: Cory Harrison - Chief Complaint Melena - History of Present Illness 68-year-old gentleman with a history of CAD previous stenting recently hospital ized over the weekend with angina underwent heart catheterization with stent placement. Discharged home on aspirin Plavix. This morning patient was awakened early with 2 episodes of painless black colored bowel movements associated with lightheadedness and dizziness. Denies hematemesis or hematoc hezia. No history GI bleed. Admission hemoglobin 13.5. BUN 55. Creatinine 0.9. INR 1.1 platelet 296. FOBT positive. Patient states his past symptoms of angina usually are "heartburn" in nature which is what he was experiencing last week prior to his cardiac stent. Since his cardiac stent was placed he's had no recurrent episodes of indigestion shortness of breath or chest pain. Last colonoscopy 1 year ago to his memory was unremarkable no polyps removed. No history GI bleed alcohol or NSAID usage. No history of gastric or bowel surgeries. Review of Systems Constitutional: Denies fever, chills, sweats, weight gain, or loss. Admitted with lightheadedness dizziness. HEENT: Negative for migraines, blurred vision or loss, earaches, drainage, tinni tus, oral mucosal lesions, dysphagia, or odynophagia. Cardiac: Negative for chest pain, arrhythmias, or palpitation. Respiratory: Negative for shortness of breath, hemoptysis, cough, or sputum production. Gastrointestinal: See HPI for pertinent findings. Genitourinary: Negative for hematuria, urgency, frequency, polyuria, dysuria, or penile discharge. Musculoskeletal: Negative for muscle aches, swelling, arthritis, and arthralgias. Neurologic: Negative for stroke or TIA. Endocrine: Negative for thyroid problems. Skin: Negative for rash or itching. Psychiatric: Negative history for depression and anxiety Past Medical History Past Medical History: Coronary Artery Disease (CAD), Hyperlipidemia, Myocardial Infarction ([place]), Pneumonia Additional Past Medical History / Comment(s): Pt states he had recent pneumonia about 5 weeks ago, pt was told after echo that he has had a WI-age unknown. Last Myocardial Infarction Date:: unknown History of Any Multi-Drug Resistant Organisms: None Reported Past Surgical History: Heart Catheterization With Stent Additional Past Surgical History / Comment(s): 01/24/19 PCI with stent, 2003 PCI with stent, numerous bilateral club feet surgeries, colonoscopy Past Anesthesia/Blood Transfusion Reactions: No Reported Reaction Date of Last Stent Placement:: 01/24/19 Past Psychological History: No Psychological Hx Reported Additional Psychological History / Comment(s): Pt resides alone. 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 He is independent. Smoking Status: Former smoker Past Alcohol Use History: Rare Additional Past Alcohol Use History / Comment(s): pt smoked ocassionaly as a teen Past Drug Use History: None Reported - Past Family History Father Additional Family Medical History / Comment(s): Father of a WI at the age of 54yrs. Pt's paternal grandfather of a WI in his 60s Mother Additional Family Medical History / Comment(s): Mother had a hiatal hernia Medications and Allergies Home Medications Medication Instructions Recorded Confirmed Type Aspirin EC [Ecotrin Low Dose] 81 mg PO DAILY 01/22/19 01/27/19 History Atenolol [Tenormin] 25 mg PO DAILY 01/22/19 01/27/19 History Cyanocobalamin [Vitamin B-12] 500 mcg PO DAILY 01/22/19 01/27/19 History Atorvastatin [Lipitor] 80 mg PO DAILY #30 tab 01/25/19 01/27/19 Rx Clopidogrel [Plavix] 75 mg PO DAILY #30 tab 01/25/19 01/27/19 Rx Nitroglycerin Sl Tabs [Nitrostat] 0.4 mg SUBLINGUAL Q5M PRN #25 tab 01/25/19 01/27/19 Rx Allergies Allergy/AdvReac Type Severity Reaction Status Date / Time No Known Allergies Allergy Verified 01/27/19 08:55 Physical Exam Vitals: Vital Signs Temp Pulse Pulse Pulse Resp BP BP 01/27/19 10:19 86 20 108/72 01/27/19 09:05 86 18 111/80 01/27/19 08:46 95 90 94/71 01/27/19 08:11 97.8 F 107 H 16 103/74 BP BP Pulse Ox 01/27/19 10:19 100 01/27/19 09:05 98 01/27/19 08:46 61/32 124/79 01/27/19 08:11 98 Intake and Output 01/26/19 01/27/19 01/27/19 22:59 06:59 14:59 Other: Weight 97.522 kg General appearance: The patient is alert, oriented, in no acute distress. HET: Head is normocephalic and atraumatic. Pupils are equal and reactive. Oropharynx is clear without lesions. Neck: Supple without lymphadenopathy. Trachea midline. Heart: S1 S2. Regular rate and rhythm. Lungs: No crackles or wheezes are heard. Abdomen: Soft, nontender, nondistended with bowel sounds. No peritoneal signs. No palpable organomegaly or masses. Extremities: Normal skin color and turgor. No cyanosis, rash, ulceration, clubbing, or edema. Radial and pedal pulses are 2/4 bilaterally. Neurological: No focal deficits. Strength and sensation are grossly intact. Results CBC & Chem 7: 01/27/19 08:30 01/27/19 08:30 Labs: Abnormal Lab Results - Last 24 Hours (Table) 01/27/19 01/27/19 01/27/19 Range/Units 08:30 08:30 08:30 WBC 12.7 H (3.8-10.6) k/uL Neutrophils # 9.7 H (1.3-7.7) k/uL APTT 21.8 L (22.0-30.0) sec Chloride 112 H (98-107) mmol/L Carbon Dioxide 19 L (22-30) mmol/L BUN 55 H (9-20) mg/dL Glucose 155 H (74-99) mg/dL Assessment and Plan (1) Melena Narrative/Plan: 68-year-old gentleman recent cardiac stenting maintained on dual antiplatelet therapy presents with 2 episodes of melanotic bowel movements associated with lightheadedness dizziness possible peptic ulcer disease possible bleeding AVM possible small bowel source. Current Visit: Yes Status: Acute Code(s): K92.1 - MELENA SNOMED Code(s): 9070591 (2) Hx of heart artery stent Current Visit: Yes Status: Acute Code(s): Z95.5 - PRESENCE OF CORONARY ANGIOPLASTY IMPLANT AND GRAFT SNOMED Code(s): 850330158 (3) GI bleed Current Visit: Yes Status: Acute Code(s): K92.2 - GASTROINTESTINAL HEMORRHAGE, UNSPECIFIED SNOMED Code(s): 92145941 Plan: 1. Nothing by mouth except meds. EGD today. PPI daily. CBC monitoring. Continue present medical therapy. The business process specialist has discussed the risks, benefits and alternative therapies for the above-mentioned procedure and for both sedation/analgesia as well as necessary blood product administration, if indicated, as they pertain to this patient. The patient has indicated understanding and acceptance of the risks and procedures discussed. Thank you for this kind referral and the opportunity to participate in the care of your patient. This consultation was discussed with Dr. Gil. The impression and plan of care have been directed as dictated.
[2019-01-27] MEDS ORDERED: NITROGLYCERIN SL TABS 0.4 MG TAB SUBLINGUAL PRN (12:53)
[2019-01-27] MEDS ORDERED: IV FLUID CONTINUATION 1,000 ML IV ONE (14:53)
[2019-01-27] MEDS ORDERED: LIDOCAINE 1% INJ 10MG/ML (20 ML MDV) ONE (14:53)
[2019-01-27] MEDS ORDERED: PROPOFOL 10 MG/ML 20 ML VIAL IV ONE (14:53)
[2019-01-27] MEDS ORDERED: ePHEDrine SULFATE/0.9% NACL/PF 50 MG/5 ML SYRINGE IV ONE (14:53)
--- NOTE | 2019-01-27 15:42 | P.PCN ---
Date of Procedure: 01/27/19 Description of Procedure: BRIEF HISTORY: 68-year-old gentleman with a history of CAD previous stenting recently hospitalized over the weekend with angina underwent heart catheterization with stent placement. Discharged home on aspirin Plavix. This morning patient was awakened early with 2 episodes of painless black colored bowel movements associated with lightheadedness and dizziness. Denies hematemesis or hematochezia. No history GI bleed. Admission hemoglobin 13.5. BUN 55. Creatinine 0.9. INR 1.1 platelet 296. FOBT positive. Patient states his past symptoms of angina usually are "heartburn" in nature which is what he was experiencing last week prior to his cardiac stent. Since his cardiac stent was placed he's had no recurrent episodes of indigestion shortness of breath or chest pain. Last colonoscopy 1 year ago to his memory was unremarkable no polyps removed. No history GI bleed alcohol or NSAID usage. No history of gastric or bowel surgeries.. PROCEDURE PERFORMED: Esophagogastroduodenoscopy. PREOPERATIVE DIAGNOSIS: . ESTIMATED BLOOD LOSS: Minimal. IV sedation per anesthesia. PROCEDURE: After informed consent was obtained, the patient was brought into the endoscopy unit. IV sedation was administered by Anesthesia under continuous monitoring. Initially the Olympus GIF-190 video endoscope was inserted into the mouth. Esophagus intubated without any difficulty. It was gradually advanced into the stomach and duodenum and carefully examined. The bulb and the second part of the duodenum appeared normal. The scope at this time was withdrawn to the stomach, adequately insufflated with air, and the mucosa of the antrum, body, cardia and the fundus were examined. A large cratered antral ulcer with associated deformity of the antrum was noted with no active bleeding or old blood seen. In addition superficial erosions of the antrum and body with associated erythema were noted suggestive of moderate gastritis. There was no active bleeding and no biopsies were taken in the setting of anticoagulation/antiplatelet therapy. The scope was then withdrawn into the esophagus. The GE junction was located at 39 cm from the incisors. The esophagus appeared normal. There were no erosions or ulcerations seen and the patient tolerated the procedure well. IMPRESSION: 1. Large cratered antral ulcer with associated deformity, no active bleeding or high risk stigmata for rebleeding. 2. Moderate gastritis of the antrum and body. 3. No active bleeding or old blood noted. RECOMMENDATIONS: The findings of this examination were discussed with the patient in the emergency department team. Okay for liquids. Would keep the patient on twice daily IV PPI therapy. Continue to closely monitor hemoglobin and hematocrit and transfuse as needed. Continue to monitor for any signs or symptoms of GI bleeding. Okay to resume anticoagulation in the setting of recent stent placement.
[2019-01-27] MEDS: ATORVASTATIN 80 MG TAB PO SCH ×2 (16:53→16:59)
[2019-01-27] MEDS: ATENOLOL 25 MG TAB PO SCH ×2 (16:53→16:59)
[2019-01-27] MEDS: CYANOCOBALAMIN 500 MCG TAB PO SCH (16:59)
[2019-01-27 17:48] LABS: Basophils % (A) 0 %; Eosinophils # (A) 0.1 k/uL (0-0.7); Eosinophils % (A) 1 %; HCT 38.9 % (39.0-53.0); HGB 13.3 gm/dL (13.0-17.5); Lymphocytes # (A) 1.3 k/uL (1.0-4.8); Lymphocytes % (A) 11 %; MCH 29.8 pg (25.0-35.0); MCHC 34.1 g/dL (31.0-37.0); MCV 87.5 fL (80.0-100.0); Mean Platelet Volume 7.2; Monocytes # (A) 0.8 k/uL (0-1.0); Monocytes % (A) 6 %; Neutrophils # (A) 10.3 k/uL (1.3-7.7); Neutrophils % (A) 82 %; Platelet Count 269 k/uL (150-450); RBC 4.45 m/uL (4.30-5.90); RDW 14.3 % (11.5-15.5); WBC 12.6 k/uL (3.8-10.6)
--- NOTE | 2019-01-27 18:45 | HP ---
HISTORY AND PHYSICAL DATE OF ADMISSION: 01/27/2019 DATE OF SERVICE: 01/27/2019 PRESENTING COMPLAINT: Dark stool, dizzy. HISTORY OF PRESENTING COMPLAINT: This is a 68-year-old patient of Dr. Spence. The patient was just discharged from the hospital on 01/25/2019. The patient had a cardiac catheterization by Dr. Nickerson and was found to have significant disease in mid LAD. Successful stenting was carried out. The patient did have a discharge, for which patient was put on aspirin and Plavix. This morning in the early hours of the morning, the patient decided to get to the bathroom and he felt dizzy, lightheaded, and actually fell down. He did have a bowel movement. Initial one was a bit hard. Subsequent to that he had dark stools and then presented to the hospital. Patient's hemoglobin was 15.8 when he was discharged. It was 13.5 today. Earlier the patient did undergo EGD by Dr. Gil and was found to have a gastric antral ulcer with no obvious stigmata of bleed. He said it was okay to have the aspirin and Plavix resumed. The patient denies any chest pain or palpitations. There was no abdominal pain. REVIEW OF SYSTEMS: CONSTITUTIONAL: Tired. HEENT: None. RESPIRATORY: None. CARDIOVASCULAR: None. GASTROINTESTINAL: As above. GENITOURINARY: None. MUSCULOSKELETAL: None. DERMATOLOGICAL: None. HEMATOLOGICAL: None. LYMPHATICS: None. PSYCHIATRY: None. NEUROLOGICAL: None. PAST MEDICAL HISTORY: 1. Coronary artery disease with stent. 2. Hyperlipidemia. 3. Recent [place]. PAST SURGICAL HISTORY: 1. Cardiac cath with stent on 01/24/2019 to the LAD. 2. Numerous surgeries for bilateral clubfeet. SOCIAL HISTORY: Lives alone. 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 Does not smoke. Does not drink alcohol. FAMILY HISTORY: Mother of a heart attack at age of 54. HOME MEDICATIONS: 1. Nitrostat 0.4 sublingually q.5 p.r.n. 2. Vitamin B12, 500 mcg a day. 3. Plavix 75 mg a day. 4. Lipitor 80 mg a day. 5. Tenormin 25 mg a day. 6. Aspirin 81 mg a day. ALLERGIES: NONE. PHYSICAL EXAMINATION: VITAL SIGNS ON PRESENTATION: Temperature 97.8, pulse 107, respiration 16, blood pressure 103/74. Later on patient was significantly orthostatic, blood pressure down into the 60s systolic. Pulse ox 98% on room air. GENERAL APPEARANCE: Average build. Lying in bed, awake. EYES: Pupils equal. Conjunctivae normal. HEENT: External appearance of nose and ears normal. Oral cavity normal. NECK: JVD not raised. Mass not palpable. RESPIRATORY: Effort normal. Lungs are clear. CARDIOVASCULAR: First and second sounds normal. No edema. ABDOMEN: Soft, non-tender. Liver and spleen not palpable. PSYCHIATRY: Alert and oriented x3. Mood and affect normal. NEUROLOGICAL: Pupils equal. Cranial nerves grossly intact. Power and sensation grossly intact. INVESTIGATIONS: White count 12.7, hemoglobin 13.5 potassium 4.3. BUN 55, creatinine 0.99. EKG tracing, personally reviewed by me, shows normal sinus rhythm. ASSESSMENT: 1. Acute upper gastrointestinal bleed in a patient who is on aspirin and Plavix, likely from a gastric antral ulcer that was present prior to this. 2. Moderate gastritis. 3. Hypotension from acute blood loss anemia. 4. Coronary artery disease with stent to the left anterior descending coronary artery on 01/24/2019. 5. Hyperlipidemia. PLAN: Patient's home medications were resumed. The patient is on a PPI. Will follow CBC closely. The patient did have a EGD by Dr. Gil, and he is okay for the antiplatelet agents to be resumed. Also Cardiology was consulted. Care was discussed with the patient. MMODL / IJN: [id number] /
[2019-01-27] MEDS: CLOPIDOGREL 75 MG TAB PO SCH (21:22)
[2019-01-27] MEDS: ASPIRIN 81 MG PO SCH (21:22)
[2019-01-27] MEDS: PANTOPRAZOLE 40 MG TABLET PO SCH (21:30)
[2019-01-28 03:04] LABS: Appearance,Urine Clear (Clear); Bilirubin,Urine Negative (Negative); Blood,Urine Negative (Negative); Color,Urine Yellow; Glucose,Urine (UA) Negative (Negative); Ketones,Urine Negative (Negative); Leukocyte Esterase,Urine Negative (Negative); Nitrite,Urine Negative (Negative); PH, Urine 5.5 (5.0-8.0); Protein,Urine Trace (Negative); Specific Gravity,Urine 1.032 (1.001-1.035); Urobilinogen,Urine <2.0 mg/dL (<2.0)
[2019-01-28] MEDS: PANTOPRAZOLE 40 MG TABLET PO SCH ×2 (06:43→16:40)
[2019-01-28] MEDS: SODIUM CHLORIDE 0.9% 1,000 ML IV SCH (06:43)
[2019-01-28] MEDS: CYANOCOBALAMIN 500 MCG TAB PO SCH (07:43)
[2019-01-28] MEDS: ATORVASTATIN 80 MG TAB PO SCH (07:43)
[2019-01-28] MEDS: CLOPIDOGREL 75 MG TAB PO SCH (07:44)
[2019-01-28] MEDS: ATENOLOL 25 MG TAB PO SCH (07:44)
[2019-01-28] MEDS: ASPIRIN 81 MG PO SCH (07:44)
[2019-01-28 08:15] LABS: Basophils % (A) 0 %; Eosinophils % (A) 0 %; HCT 34.9 % (39.0-53.0); HGB 11.4 gm/dL (13.0-17.5); Lymphocytes # (A) 2.2 k/uL (1.0-4.8); Lymphocytes % (A) 21 %; MCH 29.2 pg (25.0-35.0); MCHC 32.6 g/dL (31.0-37.0); MCV 89.6 fL (80.0-100.0); Mean Platelet Volume 6.6; Monocytes # (A) 0.7 k/uL (0-1.0); Monocytes % (A) 7 %; Neutrophils # (A) 7.3 k/uL (1.3-7.7); Neutrophils % (A) 69 %; Platelet Count 239 k/uL (150-450); RBC 3.89 m/uL (4.30-5.90); WBC 10.6 k/uL (3.8-10.6)
--- NOTE | 2019-01-28 13:16 | P.PN ---
Subjective Progress Note Date: 01/28/19 Principal diagnosis: GI bleed Admitted with acute upper GI bleed melena status post EGD large antral ulcer biopsies pending. Hemoglobin 11.4. White count 10.6. Recent cardiac stent receiving aspirin Plavix. No BMs since admission. Feels well except lightheaded when standing. Objective - Vital Signs Vital signs: Vital Signs Temp 97.8 F 01/28/19 07:47 Pulse 83 01/28/19 07:47 Resp 18 01/28/19 07:47 BP 128/65 01/28/19 07:47 Pulse Ox 100 01/28/19 07:47 Intake & Output 01/27/19 01/28/19 01/28/19 18:59 06:59 18:59 Intake Total 400 Balance 400 Weight 97.522 kg 97.5 kg Intake: IV 400 Other: Voiding Method Urinal Urinal - Exam General appearance: The patient is alert, oriented, in no acute distress. HET: Head is normocephalic and atraumatic. Pupils are equal and reactive. Oropharynx is clear without lesions. Neck: Supple without lymphadenopathy. Trachea midline. Heart: S1 S2. Regular rate and rhythm. Lungs: No crackles or wheezes are heard. Abdomen: Soft, nontender, nondistended with bowel sounds. No peritoneal signs. No palpable organomegaly or masses. Extremities: Normal skin color and turgor. No cyanosis, rash, ulceration, clubbing, or edema. Radial and pedal pulses are 2/4 bilaterally. Neurological: No focal deficits. Strength and sensation are grossly intact. - Labs CBC & Chem 7: 01/28/19 07:37 01/27/19 08:30 Labs: Abnormal Lab Results - Last 24 Hours (Table) 01/27/19 01/28/19 01/28/19 Range/Units 17:25 02:30 07:37 WBC 12.6 H (3.8-10.6) k/uL RBC 3.89 L (4.30-5.90) m/uL Hgb 11.4 L (13.0-17.5) gm/dL Hct 38.9 L 34.9 L (39.0-53.0) % Neutrophils # 10.3 H (1.3-7.7) k/uL Urine Protein Trace H (Negative) Assessment and Plan (1) Antral ulcer Current Visit: Yes Status: Acute Code(s): K25.9 - GASTRIC ULCER, UNSP ACUTE OR CHRONIC, W/O HEMOR OR PERF SNOMED Code(s): 23156011 (2) Melena Current Visit: Yes Status: Acute Code(s): K92.1 - MELENA SNOMED Code(s): 1032383 (3) Hx of heart artery stent Current Visit: Yes Status: Acute Code(s): Z95.5 - PRESENCE OF CORONARY ANGIOPLASTY IMPLANT AND GRAFT SNOMED Code(s): 953034045 (4) GI bleed Current Visit: Yes Status: Acute Code(s): K92.2 - GASTROINTESTINAL HEMORRHAGE, UNSPECIFIED SNOMED Code(s): 68278748 Plan: 1. Liquid diet as tolerated. Continue with aspirin Plavix. Monitor for signs or symptoms of GI bleed. CBC monitoring 1800 and in am. Protonix 40 mg twice a day. Assessment and plan a care discussed with Dr. Gil
--- NOTE | 2019-01-28 16:29 | P.CRDCN ---
History of Present Illness History of present illness: This is Dr. Biggs dictating a consult on this patient The patient was interviewed and examined by me IMPRESSION / ASSESSMENT: GI bleeding Antral ulcerated area with a crater Gastritis, mild Coronary artery disease status post stenting a few days back for symptomatic CAD, on Plavix and aspirin PLAN: Treatment of the ulcer and gastritis Minimize NSAIDs Continue baby aspirin and Plavix and cardiac medications HPI Patient presented with GI bleeding No chest discomfort dizziness lightheadedness or palpitations Recent coronary stenting ROS: No fever chills or rigors, no cough, phlegm or expectoration, no nausea, vomiting or diarrhea, no hematuria, dysuria, no musculoskeletal complaints, no strokes or seizures, no skin lesions. EXAMINATION: Afebrile 97.9F, pulse rate in the 80s, blood pressure 120/65 mmHg normal respirations Resting comfortably in bed Normal heart sounds normal S1 normal S2 Breath sounds are clear no rhonchi no crackles Extremities warm no edema REVIEW OF LABS, ECG & MEDICAL DATA White count 10.6, hemoglobin 11.4 normal electrolytes BUN 55 creatinine 0.99 Past Medical History Past Medical History: Coronary Artery Disease (CAD), Hyperlipidemia, Myocardial Infarction ([place]), Pneumonia Additional Past Medical History / Comment(s): Pt states he had recent pneumonia about 5 weeks ago, pt was told after echo that he has had a [place]-age unknown. Last Myocardial Infarction Date:: unknown History of Any Multi-Drug Resistant Organisms: None Reported Past Surgical History: Heart Catheterization With Stent Additional Past Surgical History / Comment(s): 01/24/19 PCI with stent, 2003 PCI with stent, numerous bilateral club feet surgeries, colonoscopy Past Anesthesia/Blood Transfusion Reactions: No Reported Reaction Date of Last Stent Placement:: 01/24/19 Past Psychological History: No Psychological Hx Reported Additional Psychological History / Comment(s): Pt resides alone. 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 Smoking Status: Former smoker Past Alcohol Use History: Rare Additional Past Alcohol Use History / Comment(s): pt smoked ocassionaly as a teen Past Drug Use History: None Reported - Past Family History Father Additional Family Medical History / Comment(s): Father of a [place] at the age of 54yrs. Pt's paternal grandfather of a [place] in his 60s Mother Additional Family Medical History / Comment(s): Mother had a hiatal hernia Medications and Allergies Home Medications Medication Instructions Recorded Confirmed Type Aspirin EC [Ecotrin Low Dose] 81 mg PO DAILY 01/22/19 01/27/19 History Atenolol [Tenormin] 25 mg PO DAILY 01/22/19 01/27/19 History Cyanocobalamin [Vitamin B-12] 500 mcg PO DAILY 01/22/19 01/27/19 History Atorvastatin [Lipitor] 80 mg PO DAILY #30 tab 01/25/19 01/27/19 Rx Clopidogrel [Plavix] 75 mg PO DAILY #30 tab 01/25/19 01/27/19 Rx Nitroglycerin Sl Tabs [Nitrostat] 0.4 mg SUBLINGUAL Q5M PRN #25 tab 01/25/19 01/27/19 Rx Allergies Allergy/AdvReac Type Severity Reaction Status Date / Time No Known Allergies Allergy Verified 01/27/19 08:55 Physical Exam Vitals: Vital Signs Temp Pulse Pulse Pulse Resp BP BP 01/28/19 12:00 97.9 F 80 18 110/58 01/28/19 07:47 97.8 F 83 18 128/65 01/28/19 02:41 97.0 F L 80 18 133/60 01/27/19 23:24 97.2 F L 88 18 100/61 01/27/19 20:00 98.4 F 90 90 17 109/75 116/74 01/27/19 19:30 90 18 110/75 01/27/19 19:00 92 14 108/67 Pulse Ox 01/28/19 12:00 97 01/28/19 07:47 100 01/28/19 02:41 97 01/27/19 23:24 96 01/27/19 20:00 97 01/27/19 19:30 97 01/27/19 19:00 98 Intake and Output 01/28/19 01/28/19 01/28/19 06:59 14:59 22:59 Intake Total 120 Output Total 600 Balance -480 Intake: Oral 120 Output: Urine 600 Other: Voiding Method Urinal Urinal Weight 97.5 kg Results 01/28/19 07:37 01/27/19 08:30 CBC 01/27/19 01/28/19 Range/Units 17:25 07:37 WBC 12.6 H 10.6 (3.8-10.6) k/uL RBC 4.45 3.89 L (4.30-5.90) m/uL Hgb 13.3 11.4 L (13.0-17.5) gm/dL Hct 38.9 L 34.9 L (39.0-53.0) % Plt Count 269 239 (150-450) k/uL Current Medications Generic Name Dose Route Start Last Admin Trade Name Freq PRN Reason Stop Dose Admin Aspirin 81 mg 01/27/19 18:00 01/28/19 07:44 Aspirin PO 81 mg DAILY SHAWN Administration Atenolol 25 mg 01/27/19 13:00 01/28/19 07:44 Tenormin PO 25 mg DAILY SHAWN Administration Atorvastatin Calcium 80 mg 01/27/19 13:00 01/28/19 07:43 Lipitor PO 80 mg DAILY SHAWN Administration Clopidogrel Bisulfate 75 mg 01/27/19 18:00 01/28/19 07:44 Plavix PO 75 mg DAILY SHAWN Administration Cyanocobalamin 500 mcg 01/27/19 13:00 01/28/19 07:43 Vitamin B-12 PO 500 mcg 1200 SHAWN Administration Sodium Chloride 1,000 mls @ 50 mls/hr 01/27/19 09:15 01/28/19 06:43 Saline 0.9% IV 50 mls/hr .Q20H SHAWN Administration Naloxone HCl 0.2 mg 01/27/19 09:07 Narcan IV Q2M PRN Opioid Reversal Nitroglycerin 0.4 mg 01/27/19 12:53 Nitrostat SUBLINGUAL Q5M PRN Chest Pain Ondansetron HCl 4 mg 01/27/19 09:07 Zofran IVP Q8HR PRN Nausea And Vomiting Pantoprazole Sodium 40 mg 01/27/19 18:00 01/28/19 06:43 Protonix PO 40 mg AC-BID SHAWN Administration Intake and Output 01/28/19 01/28/19 01/28/19 06:59 14:59 22:59 Intake Total 120 Output Total 600 Balance -480 Intake: Oral 120 Output: Urine 600 Other: Voiding Method Urinal Urinal Weight 97.5 kg 01/28/19 07:37 01/27/19 08:30
[2019-01-28 19:11] LABS: Basophils # (A) 0.1 k/uL (0-0.2); Basophils % (A) 1 %; Eosinophils # (A) 0.2 k/uL (0-0.7); Eosinophils % (A) 2 %; HCT 31.9 % (39.0-53.0); Lymphocytes # (A) 2.2 k/uL (1.0-4.8); Lymphocytes % (A) 21 %; MCH 29.9 pg (25.0-35.0); MCHC 34.3 g/dL (31.0-37.0); Mean Platelet Volume 7.4; Monocytes # (A) 0.6 k/uL (0-1.0); Monocytes % (A) 5 %; Neutrophils # (A) 7.2 k/uL (1.3-7.7); Neutrophils % (A) 69 %; Platelet Count 230 k/uL (150-450); RBC 3.67 m/uL (4.30-5.90); WBC 10.4 k/uL (3.8-10.6)
--- NOTE | 2019-01-28 23:19 | PN ---
PROGRESS NOTE DATE OF SERVICE: 01/28/2019 PRESENTING COMPLAINT: GI bleed. INTERVAL HISTORY: This patient with coronary artery disease with a stent done a week ago presented with acute GI bleed. Patient has been put back on antiplatelet agents. He was found to have a gastric antral ulcer. Patient has been rather significantly dizzy also today, especially when he gets up. Discussed this with the nurse Pamela. REVIEW OF SYSTEMS: Done for constitutional, cardiovascular, GI, pulmonary; relevant findings as above. CURRENT MEDICATIONS: Reviewed. They include aspirin and Plavix. PHYSICAL EXAMINATION: Temperature 97.8, pulse 76, respiration 16, blood pressure 116/56, pulse ox 98% on room air. GENERAL APPEARANCE: Lying in bed, awake. EYES: Pupils equal. Conjunctivae normal. NECK: JVD not raised. Mass not palpable. RESPIRATORY: Effort normal. Lungs are clear. CARDIOVASCULAR: First and second sounds normal. No edema. ABDOMEN: Soft, non-tender. Liver and spleen not palpable. PSYCHIATRY: Alert and oriented x3. Mood and affect normal. INVESTIGATIONS: White count 10.4, hemoglobin 11. ASSESSMENT: 1. Acute upper gastrointestinal bleed in a patient on aspirin and Plavix from gastric antral ulcer. 2. Moderate gastritis. 3. Hypotension from acute blood loss anemia. 4. Coronary artery disease with stent to the LAD on 01/24/2019. 5. Hyperlipidemia. PLAN: Patient is still rather symptomatic. Will keep the patient on IV fluids. Keep a close eye on the hemoglobin. Will also cut back on Tenormin, change to Lopressor 12.5 twice a day. MMODL / IJN: [id number] /
[2019-01-29] MEDS: SODIUM CHLORIDE 0.9% 1,000 ML IV SCH (06:49)
[2019-01-29] MEDS: PANTOPRAZOLE 40 MG TABLET PO SCH (06:50)
[2019-01-29 07:48] LABS: Anion Gap 7 mmol/L; Basophils % (A) 1 %; Blood Urea Nitrogen 28 mg/dL (9-20); Calcium 8.4 mg/dL (8.4-10.2); Carbon Dioxide 23 mmol/L (22-30); Chloride 111 mmol/L (98-107); Eosinophils # (A) 0.1 k/uL (0-0.7); Eosinophils % (A) 2 %; Glucose 94 mg/dL (74-99); HCT 28.2 % (39.0-53.0); HGB 9.6 gm/dL (13.0-17.5); Lymphocytes # (A) 1.8 k/uL (1.0-4.8); Lymphocytes % (A) 28 %; MCH 30.3 pg (25.0-35.0); MCHC 34.2 g/dL (31.0-37.0); MCV 88.5 fL (80.0-100.0); Mean Platelet Volume 7.1; Monocytes # (A) 0.4 k/uL (0-1.0); Monocytes % (A) 6 %; Neutrophils # (A) 3.8 k/uL (1.3-7.7); Neutrophils % (A) 61 %; Platelet Count 190 k/uL (150-450); Potassium 3.6 mmol/L (3.5-5.1); RBC 3.19 m/uL (4.30-5.90); RDW 14.5 % (11.5-15.5); Sodium 141 mmol/L (137-145); WBC 6.2 k/uL (3.8-10.6)
[2019-01-29] MEDS: ASPIRIN 81 MG PO SCH (08:25)
[2019-01-29] MEDS: CLOPIDOGREL 75 MG TAB PO SCH (08:25)
[2019-01-29] MEDS: ATORVASTATIN 80 MG TAB PO SCH (08:25)
[2019-01-29] MEDS ORDERED: METOPROLOL TARTRATE 25 MG TAB PO SCH (09:00)
[2019-01-29 11:38] VITALS: BP 108/63; PULSE 77; RESP 18; TEMP 98.3
[2019-01-29] MEDS: CYANOCOBALAMIN 500 MCG TAB PO SCH (12:44)
--- NOTE | 2019-01-29 12:48 | P.PN ---
Subjective Progress Note Date: 01/29/19 Principal diagnosis: GI bleed Admitted with acute upper GI bleed melena status post EGD large antral ulcer biopsies pending. Hemoglobin 9.6. BUN 28. Creatinine 0.9. Recent cardiac stent receiving aspirin Plavix. No BMs since admission. Feels well vertical improved. Bowel movement this morning black in color without abdominal complaints requesting diet advancement. Objective - Vital Signs Vital signs: Vital Signs Temp 98.3 F 01/29/19 11:36 Pulse 77 01/29/19 11:36 Resp 18 01/29/19 11:36 BP 108/63 01/29/19 11:36 Pulse Ox 97 01/29/19 08:00 Intake & Output 01/28/19 01/29/19 01/29/19 18:59 06:59 18:59 Intake Total 240 600 Output Total 600 Balance -360 600 Weight 105.1 kg Intake: Oral 240 600 Output: Urine 600 Other: Voiding Method Urinal Urinal # Voids 2 0 # Bowel Movements 1 0 - Exam General appearance: The patient is alert, oriented, in no acute distress. HET: Head is normocephalic and atraumatic. Pupils are equal and reactive. Oropharynx is clear without lesions. Neck: Supple without lymphadenopathy. Trachea midline. Heart: S1 S2. Regular rate and rhythm. Lungs: No crackles or wheezes are heard. Abdomen: Soft, nontender, nondistended with bowel sounds. No peritoneal signs. No palpable organomegaly or masses. Extremities: Normal skin color and turgor. No cyanosis, rash, ulceration, clubbing, or edema. Radial and pedal pulses are 2/4 bilaterally. Neurological: No focal deficits. Strength and sensation are grossly intact. - Labs CBC & Chem 7: 01/29/19 06:16 01/29/19 06:16 Labs: Abnormal Lab Results - Last 24 Hours (Table) 01/28/19 01/29/19 01/29/19 Range/Units 18:18 06:16 06:16 RBC 3.67 L 3.19 L (4.30-5.90) m/uL Hgb 11.0 L 9.6 L (13.0-17.5) gm/dL Hct 31.9 L 28.2 L (39.0-53.0) % Chloride 111 H (98-107) mmol/L BUN 28 H (9-20) mg/dL Assessment and Plan (1) Antral ulcer Current Visit: Yes Status: Acute Code(s): K25.9 - GASTRIC ULCER, UNSP ACUTE OR CHRONIC, W/O HEMOR OR PERF SNOMED Code(s): 76521655 (2) Melena Narrative/Plan: 68-year-old gentleman recent cardiac stenting maintained on dual antiplatelet therapy presents with 2 episodes of melanotic bowel movements associated with lightheadedness dizziness possible peptic ulcer disease possible bleeding AVM possible small bowel source. Current Visit: Yes Status: Acute Code(s): K92.1 - MELENA SNOMED Code(s): 4641403 (3) Hx of heart artery stent Current Visit: Yes Status: Acute Code(s): Z95.5 - PRESENCE OF CORONARY ANGIOPLASTY IMPLANT AND GRAFT SNOMED Code(s): 864309042 (4) GI bleed Current Visit: Yes Status: Acute Code(s): K92.2 - GASTROINTESTINAL HE MORRHAGE, UNSPECIFIED SNOMED Code(s): 96317741 Plan: 1. Full Liquid diet as tolerated with ensure. Continue with aspirin Plavix. Monitor for signs or symptoms of GI bleed. CBC daily. Protonix 40 mg twice a day. Assessment and plan a care discussed with Dr. Gil
--- NOTE | 2019-01-31 17:34 | DS ---
DISCHARGE SUMMARY DATE OF ADMISSION: 01/27/19. DATE OF DISCHARGE: 01/29/19. FINAL DIAGNOSES: 1. Acute upper gastrointestinal bleed from gastric ulcer. The patient being on aspirin and Plavix. 2. Moderate gastritis. 3. Hypotension from acute blood loss from GI bleed. 4. Coronary artery disease with stent to the LAD on 01/24/19. 5. Hyperlipidemia. CONSULTATION: 1. Dr. Gil from GI. 2. Dr. Biggs from Cardiology. HOSPITAL COURSE: This patient had just undergone a cardiac cath with stent, presented with dark stools. EGD did show gastric ulcer with no evidence of acute bleeding, antiplatelet agents were resumed. Initially patient was rather symptomatic with dizziness. Now by the time of discharge the blood pressure still running a bit on the low side, but the patient is able to get about and walk in the hallway without any significant dizziness. Care was discussed with the patient. I told him to watch out for his bowels. PHYSICAL EXAMINATION: Temperature 98.3, pulse 86, respirations 18, blood pressure 103/60, pulse ox 97% on room air. ABDOMEN: Soft, nontender. INVESTIGATIONS: Hemoglobin was 9.6. Admission hemoglobin was 13.5. DISCHARGE MEDICATIONS: 1. Aspirin 81 mg a day. 2. Vitamin B12 500 mcg a day. 3. Lipitor 80 mg p.o. daily. 4. Plavix 75 mg p.o. daily. 5. Nitrostat 0.4 sublingual q.5 p.r.n. 6. Lopressor 12.5 p.o. b.i.d. 7. Prilosec 20 mg p.o. b.i.d. FOLLOWUP: Follow with Dr. Biggs on 02/26/19, Dr. Jordan Spence in [place] on 02/04/19, Dr. Gil on 02/19/19. CBC in 3 days. Discussion and discharge planning more than 35 minutes. MMODL / IJN: [id number] /
== END 2019-01-29 16:20 | disposition home or self-care (01) | DRG 378 ==
LOC: EC 08:08 → 3SCARD 09:08 → OBSVTOIN 01-29 09:14
PROVIDERS: ADMIT Hospitalist; ATTEND Hospitalist
PROC: 0DJ08ZZ Inspection of Upper Intestinal Tract, Via Natural or Artificial Opening Endoscopic (ICD-10-PCS; principal; 2019-01-27 10:25)
DX: K25.0 Acute gastric ulcer with hemorrhage (principal); D62 Acute posthemorrhagic anemia; K29.71 Gastritis, unspecified, with bleeding; I25.10 Atherosclerotic heart disease of native coronary artery without angina pectoris; E78.5 Hyperlipidemia, unspecified; I25.2 Old myocardial infarction; I95.1 Orthostatic hypotension; R94.4 Abnormal results of kidney function studies; Z79.82 Long term (current) use of aspirin; Z79.899 Other long term (current) drug therapy; Z79.02 Long term (current) use of antithrombotics/antiplatelets; Z87.891 Personal history of nicotine dependence; Z95.5 Presence of coronary angioplasty implant and graft; Z87.01 Personal history of pneumonia (recurrent); Z82.49 Family history of ischemic heart disease and other diseases of the circulatory system
CPT/HCPCS: 36415; 43235; 80048; 80053; 81003; 82272; 83735; 85025; 85610; 85730; 86850; 86900; 86901; 93005; 96374; 99291

== ENCOUNTER → 2019-02-04 | Outpatient (CLI) | payer MEDICARE ==
[2019-02-04 14:36] LABS: Anisocytosis Slight; Basophils % (A) 0 %; Eosinophils # (A) 0.4 k/uL (0-0.7); Eosinophils % (A) 6 %; HCT 30.3 % (39.0-53.0); Hypochromasia Slight; Lymphocytes # (A) 1.3 k/uL (1.0-4.8); Lymphocytes % (A) 22 %; MCH 29.9 pg (25.0-35.0); MCHC 33.1 g/dL (31.0-37.0); MCV 90.4 fL (80.0-100.0); Mean Platelet Volume 6.9; Monocytes # (A) 0.5 k/uL (0-1.0); Monocytes % (A) 8 %; Neutrophils # (A) 3.3 k/uL (1.3-7.7); Neutrophils % (A) 59 %; Platelet Count 232 k/uL (150-450); Poikilocytosis Slight; RBC 3.36 m/uL (4.30-5.90); RDW 16.3 % (11.5-15.5); WBC 5.7 k/uL (3.8-10.6)
[2019-02-04 15:02] LABS: ALT 36 U/L (21-72); AST 27 U/L (17-59); Albumin 3.9 g/dL (3.5-5.0); Albumin/Globulin Ratio 1.6; Alkaline Phosphatase 63 U/L (38-126); Anion Gap 6 mmol/L; Blood Urea Nitrogen 9 mg/dL (9-20); Calcium 9.1 mg/dL (8.4-10.2); Carbon Dioxide 29 mmol/L (22-30); Chloride 106 mmol/L (98-107); Globulin 2.5 g/dL; Glucose 100 mg/dL (74-99); Potassium 4.4 mmol/L (3.5-5.1); Sodium 141 mmol/L (137-145); Total Bilirubin 0.5 mg/dL (0.2-1.3); Total Protein 6.4 g/dL (6.3-8.2)
== END | disposition home or self-care (01) ==
LOC: LABWHC1 14:21
PROVIDERS: ATTEND Family Medicine
DX: D64.9 Anemia, unspecified (principal)
CPT/HCPCS: 36415; 80053; 85025

== ENCOUNTER 2019-02-22 20:33 | Emergency (ER) | payer MEDICARE ==
[2019-02-22] MEDS ORDERED: predniSONE 20 MG TAB PO STA (21:40)
[2019-02-22] MEDS ORDERED: ALBUTEROL NEBULIZED 2.5 MG/3 ML INHALATION STA ×2 (21:40→23:18)
--- NOTE | 2019-02-22 21:41 | ED ---
SOB HPI - General Chief Complaint: Shortness of Breath Stated Complaint: Congestion, ELMER Time Seen by Provider: 02/22/19 21:05 Source: patient Mode of arrival: wheelchair Limitations: no limitations - History of Present Illness Initial Comments: This patient is a 69-year-old man who complains of having cough that his started on Friday and really worsened this afternoon. The patient states that he was going to see his PMD, but the cough was preventing him from sleeping. Patient denies any associated symptoms. He has not had fever or chills. There is no sputum production. He denies chest pain, dyspnea, diaphoresis, nausea or vomiting. No change in urination or bowel movements. No swelling or pain to the legs. MD Complaint: cough Onset/Timin -: days(s) Severity scale (1-10): 0 Improves With: nothing Worsens With: nothing Associated Symptoms: denies other symptoms Treatments Prior to Arrival: none - Related Data Home Oxygen Therapy: No Home Medications Medication Instructions Recorded Confirmed Aspirin EC [Ecotrin Low Dose] 81 mg PO DAILY 01/22/19 02/22/19 Cyanocobalamin [Vitamin B-12] 500 mcg PO DAILY 01/22/19 02/22/19 guaiFENesin [Mucinex] 600 mg PO Q12HR 02/22/19 02/22/19 Previous Rx's Medication Instructions Recorded Atorvastatin [Lipitor] 80 mg PO DAILY #30 tab 01/25/19 Clopidogrel [Plavix] 75 mg PO DAILY #30 tab 01/25/19 Nitroglycerin Sl Tabs [Nitrostat] 0.4 mg SUBLINGUAL Q5M PRN #25 tab 01/25/19 Metoprolol Tartrate [Lopressor] 12.5 mg PO BID #60 tab 01/29/19 Omeprazole [PriLOSEC] 20 mg PO AC-BID #60 cap 01/29/19 Albuterol Inhaler [Ventolin Hfa 1 - 2 puff INHALATION Q6HR PRN #1 02/22/19 Inhaler] inhaler predniSONE 60 mg PO DAILY #30 tab 02/22/19 Allergies Allergy/AdvReac Type Severity Reaction Status Date / Time No Known Allergies Allergy Verified 02/22/19 21:41 Review of Systems ROS Statement: Those systems with pertinent positive or pertinent negative responses have been documented in the HPI. ROS Other: All systems not noted in ROS Statement are negative. Constitutional: Denies: fever, chills, weakness Respiratory: Reports: cough. Denies: dyspnea, wheezes, hemoptysis Cardiovascular: Denies: chest pain, palpitations, orthopnea, edema, syncope Gastrointestinal: Denies: abdominal pain, vomiting, diarrhea, melena, hematochezia Musculoskeletal: Denies: back pain Skin: Denies: rash Neurological: Denies: headache, weakness Past Medical History Past Medical History: Coronary Artery Disease (CAD), Hyperlipidemia, Myocardial Infarction ([place]), Pneumonia Additional Past Medical History / Comment(s): Pt states he had recent pneumonia about 5 weeks ago, pt was told after echo that he has had a [place]-age unknown. , Last Myocardial Infarction Date:: unknown History of Any Multi-Drug Resistant Organisms: None Reported Past Surgical History: Heart Catheterization With Stent Additional Past Surgical History / Comment(s): 01/24/19 PCI with stent, 2003 PCI with stent, numerous bilateral club feet surgeries, colonoscopy, Past Anesthesia/Blood Transfusion Reactions: No Reported Reaction Date of Last Stent Placement:: 01/24/19 Past Psychological History: No Psychological Hx Reported Smoking Status: Former smoker Past Alcohol Use History: Rare Past Drug Use History: None Reported - Past Family History Father Additional Family Medical History / Comment(s): Father of a [place] at the age of 54yrs. Pt's paternal grandfather of a [place] in his 60s Mother Additional Family Medical History / Comment(s): Mother had a hiatal hernia General Exam Limitations: no limitations General appearance: alert, in no apparent distress Head exam: Present: atraumatic, normocephalic Eye exam: Present: normal appearance. Absent: scleral icterus, conjunctival injection ENT exam: Present: normal oropharynx Respiratory exam: Present: wheezes, other (Frequent nonproductive cough during exam). Absent: respiratory distress, rales, rhonchi, stridor, accessory muscle use, decreased breath sounds, prolonged expiratory Cardiovascular Exam: Present: regular rate, normal rhythm, normal heart sounds. Absent: systolic murmur, diastolic murmur, rubs, gallop GI/Abdominal exam: Present: soft. Absent: distended, tenderness, rebound Extremities exam: Present: normal inspection, normal capillary refill. Absent: pedal edema, calf tenderness Back exam: Present: normal inspection. Absent: CVA tenderness (R), CVA tenderness (L) Neurological exam: Present: alert Skin exam: Present: warm, dry, intact, normal color. Absent: rash Course Vital Signs 02/22/19 02/22/19 02/22/19 20:47 22:41 22:50 Temperature 98.3 F Pulse Rate 85 80 Respiratory 20 23 Rate Blood Pressure 117/78 O2 Sat by Pulse 98 Oximetry 02/22/19 22:51 Temperature Pulse Rate 80 Respiratory Rate Blood Pressure O2 Sat by Pulse Oximetry Medical Decision Making - Medical Decision Making Patient is feeling markedly better following the nebulized medication. We discussed the patient's diagnosis, the appropriate further care and follow-up, the return parameters and all questions answered. - Lab Data Result diagrams: 02/22/19 22:00 02/22/19 22:00 Lab Results 02/22/19 02/22/19 02/22/19 Range/Units 22:00 22:00 22:00 WBC 8.2 (3.8-10.6) k/uL RBC 4.19 L (4.30-5.90) m/uL Hgb 12.0 L (13.0-17.5) gm/dL Hct 36.1 L (39.0-53.0) % MCV 86.0 (80.0-100.0) fL MCH 28.7 (25.0-35.0) pg MCHC 33.4 (31.0-37.0) g/dL RDW 14.8 (11.5-15.5) % Plt Count 239 (150-450) k/uL Neutrophils % 67 % Lymphocytes % 18 % Monocytes % 7 % Eosinophils % 6 % Basophils % 0 % Neutrophils # 5.5 (1.3-7.7) k/uL Lymphocytes # 1.5 (1.0-4.8) k/uL Monocytes # 0.6 (0-1.0) k/uL Eosinophils # 0.5 (0-0.7) k/uL Basophils # 0.0 (0-0.2) k/uL Hypochromasia Slight Poikilocytosis Moderate PT 10.4 (9.0-12.0) sec INR 1.0 (<1.2) APTT 23.2 (22.0-30.0) sec Sodium 141 (137-145) mmol/L Potassium 4.3 (3.5-5.1) mmol/L Chloride 107 (98-107) mmol/L Carbon Dioxide 25 (22-30) mmol/L Anion Gap 9 mmol/L BUN 13 (9-20) mg/dL Creatinine 0.88 (0.66-1.25) mg/dL Est GFR (CKD-EPI)AfAm >90 (>60 ml/min/1.73 sqM) Est GFR (CKD-EPI)NonAf 87 (>60 ml/min/1.73 sqM) Glucose 100 H (74-99) mg/dL Calcium 9.7 (8.4-10.2) mg/dL Total Bilirubin 0.5 (0.2-1.3) mg/dL AST 25 (17-59) U/L ALT 28 (21-72) U/L Alkaline Phosphatase 61 (38-126) U/L Troponin I (0.000-0.034) ng/mL Total Protein 7.0 (6.3-8.2) g/dL Albumin 4.2 (3.5-5.0) g/dL /04/07 Range/Units 22:00 WBC (3.8-10.6) k/uL RBC (4.30-5.90) m/uL Hgb (13.0-17.5) gm/dL Hct (39.0-53.0) % MCV (80.0-100.0) fL MCH (25.0-35.0) pg MCHC (31.0-37.0) g/dL RDW (11.5-15.5) % Plt Count (150-450) k/uL Neutrophils % % Lymphocytes % % Monocytes % % Eosinophils % % Basophils % % Neutrophils # (1.3-7.7) k/uL Lymphocytes # (1.0-4.8) k/uL Monocytes # (0-1.0) k/uL Eosinophils # (0-0.7) k/uL Basophils # (0-0.2) k/uL Hypochromasia Poikilocytosis PT (9.0-12.0) sec INR (<1.2) APTT (22.0-30.0) sec Sodium (137-145) mmol/L Potassium (3.5-5.1) mmol/L Chloride (98-107) mmol/L Carbon Dioxide (22-30) mmol/L Anion Gap mmol/L BUN (9-20) mg/dL Creatinine (0.66-1.25) mg/dL Est GFR (CKD-EPI)AfAm (>60 ml/min/1.73 sqM) Est GFR (CKD-EPI)NonAf (>60 ml/min/1.73 sqM) Glucose (74-99) mg/dL Calcium (8.4-10.2) mg/dL Total Bilirubin (0.2-1.3) mg/dL AST (17-59) U/L ALT (21-72) U/L Alkaline Phosphatase (38-126) U/L Troponin I <0.012 (0.000-0.034) ng/mL Total Protein (6.3-8.2) g/dL Albumin (3.5-5.0) g/dL - EKG Data -: EKG Interpreted by Md EKG shows normal: sinus rhythm, axis (Normal), intervals (Normal), QRS complexes (Low-voltage QRS complex), ST-T waves (Normal) Rate: normal (Rate 79 bpm) Disposition Clinical Impression: Bronchitis Disposition: HOME SELF-CARE Condition: Good Instructions (If sedation given, give patient instructions): Acute Bronchitis (ED) Prescriptions: predniSONE 60 mg PO DAILY #30 tab Albuterol Inhaler [Ventolin Hfa Inhaler] 1 - 2 puff INHALATION Q6HR PRN #1 inhaler PRN Reason: Wheezing Is patient prescribed a controlled substance at d/c from ED?: No Referrals: Oscar Spence MD [Primary Care Provider] - 1-2 days
[2019-02-22 22:19] LABS: Basophils % (A) 0 %; Eosinophils # (A) 0.5 k/uL (0-0.7); Eosinophils % (A) 6 %; HCT 36.1 % (39.0-53.0); Hypochromasia Slight; Lymphocytes # (A) 1.5 k/uL (1.0-4.8); Lymphocytes % (A) 18 %; MCH 28.7 pg (25.0-35.0); MCHC 33.4 g/dL (31.0-37.0); Mean Platelet Volume 6.8; Monocytes # (A) 0.6 k/uL (0-1.0); Monocytes % (A) 7 %; Neutrophils # (A) 5.5 k/uL (1.3-7.7); Neutrophils % (A) 67 %; Platelet Count 239 k/uL (150-450); Poikilocytosis Moderate; RBC 4.19 m/uL (4.30-5.90); RDW 14.8 % (11.5-15.5); WBC 8.2 k/uL (3.8-10.6)
[2019-02-22 22:27] LABS: Partial Thromboplastin Time 23.2 sec (22.0-30.0); Prothrombin Time 10.4 sec (9.0-12.0)
[2019-02-22 22:28] LABS: ALT 28 U/L (21-72); AST 25 U/L (17-59); Albumin 4.2 g/dL (3.5-5.0); Alkaline Phosphatase 61 U/L (38-126); Anion Gap 9 mmol/L; Blood Urea Nitrogen 13 mg/dL (9-20); Calcium 9.7 mg/dL (8.4-10.2); Carbon Dioxide 25 mmol/L (22-30); Chloride 107 mmol/L (98-107); Glucose 100 mg/dL (74-99); Potassium 4.3 mmol/L (3.5-5.1); Sodium 141 mmol/L (137-145); Total Bilirubin 0.5 mg/dL (0.2-1.3)
--- NOTE | 2019-02-22 22:47 | XR ---
EXAM: XR Chest, 2 Views CLINICAL HISTORY: Difficulty breathing TECHNIQUE: Frontal and lateral views of the chest. COMPARISON: Chest x-ray dated 01/22/2019 FINDINGS: Lungs: Stable platelike atelectasis and or scarring within the lower lung. Otherwise lungs are clear. Pleural space: Unremarkable. No pneumothorax. Heart: Unremarkable. No cardiomegaly. Mediastinum: Unremarkable. Bones/joints: Unremarkable. IMPRESSION: No acute findings.
[2019-02-23 00:17] VITALS: BP 119/72; RESP 18; TEMP 98.7
[2019-02-23 00:22] VITALS: PULSE 89
== END 2019-02-23 00:45 | disposition home or self-care (01) ==
LOC: EC 20:33
DX: J40 Bronchitis, not specified as acute or chronic (principal); I25.10 Atherosclerotic heart disease of native coronary artery without angina pectoris; I25.2 Old myocardial infarction; Z79.82 Long term (current) use of aspirin; Z79.899 Other long term (current) drug therapy; Z95.5 Presence of coronary angioplasty implant and graft; Z87.891 Personal history of nicotine dependence
CPT/HCPCS: 36415; 94640; 93005; 80053; 84484; 85025; 85610; 85730; 71046; 99285; J7512

== ENCOUNTER 2019-08-18 13:29 | Emergency (ER) | payer MEDICARE ==
[2019-08-18 13:46] LABS: Glucose,Whole Blood 117 mg/dL (75-99)
[2019-08-18 13:56] VITALS: TEMP 98
--- NOTE | 2019-08-18 14:14 | ED ---
General Adult HPI - General Chief complaint: Neuro Symptoms/Deficit Stated complaint: sent by Jae Mcginnis eye Time Seen by Provider: 08/18/19 13:35 Source: patient, RN notes reviewed Mode of arrival: ambulatory Limitations: no limitations - History of Present Illness Initial comments: Patient is a pleasant 69-year-old male presenting to the emergency department with visual changes of the right eye. Onset of symptoms was after he woke this morning. Patient awoke around 5:30. Patient is not certain but believes his vision was likely normal at that point. Approximate 20 minutes later patient did notice some decreased vision. Area of decreased vision is only with the right eye. Mentation shuts his left eye he states out of his right eye his uppe r left visual field is decreased approximately almost 10%. No pain. No headache. No confusion.Pounds. No weakness. Patient did see his eye doctor today who was concerned about retinal artery occlusion. Dr. Rowe did call here and recommends stroke evaluation. - Related Data Home Medications Medication Instructions Recorded Confirmed Aspirin EC [Ecotrin Low Dose] 81 mg PO DAILY 01/22/19 08/18/19 Atorvastatin Calcium [Lipitor] 40 mg PO DAILY 08/18/19 08/18/19 Carvedilol [Coreg] 3.125 mg PO AC-BID 08/18/19 08/18/19 Clopidogrel Bisulfate [Plavix] 75 mg PO DAILY 08/18/19 08/18/19 Omeprazole [PriLOSEC] 20 mg PO AC-BID 08/18/19 08/18/19 Previous Rx's Medication Instructions Recorded Nitroglycerin Sl Tabs [Nitrostat] 0.4 mg SUBLINGUAL Q5M PRN #25 tab 01/25/19 Allergies Allergy/AdvReac Type Severity Reaction Status Date / Time No Known Allergies Allergy Verified 08/18/19 14:12 Review of Systems ROS Statement: Those systems with pertinent positive or pertinent negative responses have been documented in the HPI. ROS Other: All systems not noted in ROS Statement are negative. Constitutional: Denies: fever Eyes: Reports: as per HPI, vision change. Denies: eye pain ENT: Denies: ear pain Respiratory: Denies: dyspnea Cardiovascular: Denies: chest pain Endocrine: Denies: fatigue Gastrointestinal: Denies: abdominal pain Genitourinary: Denies: dysuria Musculoskeletal: Denies: back pain Skin: Denies: rash Neurological: Denies: headache, weakness, numbness, paresthesias, confusion, abnormal gait, vertigo Past Medical History Past Medical History: Coronary Artery Disease (CAD), Hyperlipidemia, Myocardial Infarction ([place]), Pneumonia Additional Past Medical History / Comment(s): Pt states he had recent pneumonia about 5 weeks ago, pt was told after echo that he has had a [place]-age unknown. , Last Myocardial Infarction Date:: unknown History of Any Multi-Drug Resistant Organisms: None Reported Past Surgical History: Heart Catheterization With Stent Additional Past Surgical History / Comment(s): 01/24/19 PCI with stent, 2003 PCI with stent, numerous bilateral club feet surgeries, colonoscopy, Past Anesthesia/Blood Transfusion Reactions: No Reported Reaction Date of Last Stent Placement:: 01/24/19 Past Psychological History: No Psychological Hx Reported Smoking Status: Former smoker Past Alcohol Use History: Rare Past Drug Use History: None Reported - Past Family History Father Additional Family Medical History / Comment(s): Father of a [place] at the age of 54yrs. Pt's paternal grandfather of a [place] in his 60s Mother Additional Family Medical History / Comment(s): Mother had a hiatal hernia General Exam Limitations: no limitations General appearance: alert, in no apparent distress Head exam: Present: normocephalic Eye exam: Present: normal appearance, EOMI, other (Pupils fixed and dilated, patient did have his eyes dilated this morning.) ENT exam: Present: normal oropharynx Neck exam: Present: normal inspection Respiratory exam: Present: normal lung sounds bilaterally Cardiovascular Exam: Present: regular rate, normal rhythm GI/Abdominal exam: Present: soft. Absent: tenderness Extremities exam: Present: normal inspection Neurological exam: Present: alert, oriented X3, CN II-XII intact. Absent: motor sensory deficit Expanded Patient oriented to: Present: person, place, time Speech: Present: fluid speech Cranial nerves: EOM's Intact: Normal, Facial Sensation: Normal Sensory exam: Upper Extremity Light Touch: Normal, Lower Extremity Light Touch: Normal Motor strength exam: RUE: 5, LUE: 5, RLE: 5, LLE: 5 Eye Response: (4) open spontaneously Motor Response: (6) obeys commands Verbal Response: (5) oriented Psychiatric exam: Present: normal affect, normal mood Skin exam: Present: normal color Course Vital Signs 10/30/19 10/30/19 13:45 14:57 Temperature 98.0 F Pulse Rate 74 70 Respiratory 18 16 Rate Blood Pressure 153/93 136/84 O2 Sat by Pulse 99 99 Oximetry EKG Findings - EKG Comments: EKG Findings:: Normal sinus rhythm 73. IL 190. QRS 88. QT 374. QTC 412. Normal axis. Low QRS voltage. No acute ST change. Medical Decision Making - Medical Decision Making Case was crusted detail with Dr. Torres who does recommend transfer to [facility] for evaluation and angiogram. He does request relents and aspirin and Lipitor as well as IV fluid bolus. Patient reevaluated and unchanged. Patient is updated. - Lab Data Result diagrams: 08/18/19 13:55 08/18/19 13:55 Lab Results 08/18/19 08/18/19 08/18/19 Range/Units 13:44 13:55 13:55 WBC 6.6 (3.8-10.6) k/uL RBC 5.11 (4.30-5.90) m/uL Hgb 15.4 (13.0-17.5) gm/dL Hct 44.3 (39.0-53.0) % MCV 86.8 (80.0-100.0) fL MCH 30.1 (25.0-35.0) pg MCHC 34.6 (31.0-37.0) g/dL RDW 13.9 (11.5-15.5) % Plt Count 205 (150-450) k/uL Neutrophils % 62 % Lymphocytes % 22 % Monocytes % 7 % Eosinophils % 5 % Basophils % 1 % Neutrophils # 4.1 (1.3-7.7) k/uL Lymphocytes # 1.5 (1.0-4.8) k/uL Monocytes # 0.5 (0-1.0) k/uL Eosinophils # 0.3 (0-0.7) k/uL Basophils # 0.1 (0-0.2) k/uL PT (9.0-12.0) sec INR (<1.2) APTT (22.0-30.0) sec Sodium 140 (137-145) mmol/L Potassium 4.6 (3.5-5.1) mmol/L Chloride 109 H (98-107) mmol/L Carbon Dioxide 23 (22-30) mmol/L Anion Gap 8 mmol/L BUN 16 (9-20) mg/dL Creatinine 0.94 (0.66-1.25) mg/dL Est GFR (CKD-EPI)AfAm >90 (>60 ml/min/1.73 sqM) Est GFR (CKD-EPI)NonAf 82 (>60 ml/min/1.73 sqM) Glucose 107 H (74-99) mg/dL POC Glucose (mg/dL) 117 H (75-99) mg/dL POC Glu Rapid Outsole Stitcher Shun [place] Calcium 9.2 (8.4-10.2) mg/dL Total Bilirubin 0.7 (0.2-1.3) mg/dL AST 25 (17-59) U/L ALT 21 (21-72) U/L Alkaline Phosphatase 72 (38-126) U/L Troponin I (0.000-0.034) ng/mL Total Protein 7.3 (6.3-8.2) g/dL Albumin 4.2 (3.5-5.0) g/dL 08/18/19 08/18/19 Range/Units 13:55 13:55 WBC (3.8-10.6) k/uL RBC (4.30-5.90) m/uL Hgb (13.0-17.5) gm/dL Hct (39.0-53.0) % MCV (80.0-100.0) fL MCH (25.0-35.0) pg MCHC (31.0-37.0) g/dL RDW (11.5-15.5) % Plt Count (150-450) k/uL Neutrophils % % Lymphocytes % % Monocytes % % Eosinophils % % Basophils % % Neutrophils # (1.3-7.7) k/uL Lymphocytes # (1.0-4.8) k/uL Monocytes # (0-1.0) k/uL Eosinophils # (0-0.7) k/uL Basophils # (0-0.2) k/uL PT 10.3 (9.0-12.0) sec INR 1.0 (<1.2) APTT 24.9 (22.0-30.0) sec Sodium (137-145) mmol/L Potassium (3.5-5.1) mmol/L Chloride (98-107) mmol/L Carbon Dioxide (22-30) mmol/L Anion Gap mmol/L BUN (9-20) mg/dL Creatinine (0.66-1.25) mg/dL Est GFR (CKD-EPI)AfAm (>60 ml/min/1.73 sqM) Est GFR (CKD-EPI)NonAf (>60 ml/min/1.73 sqM) Glucose (74-99) mg/dL POC Glucose (mg/dL) (75-99) mg/dL POC Glu Rapid Outsole Stitcher ID Calcium (8.4-10.2) mg/dL Total Bilirubin (0.2-1.3) mg/dL AST (17-59) U/L ALT (21-72) U/L Alkaline Phosphatase (38-126) U/L Troponin I <0.012 (0.000-0.034) ng/mL Total Protein (6.3-8.2) g/dL Albumin (3.5-5.0) g/dL - Radiology Data Radiology results: report reviewed (Computed tomography scan of the brain shows suspected carotid artery occlusion of indeterminate age. No acute hemorrhage. Mild degenerative changes. Area of low attenuation left vasogangliaLikely basis of previous ischemia. 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 CTA of the [place] shows posterior indicating arteries are absent.), image reviewed (Chest x-ray shows no acute process) Disposition Clinical Impression: Cerebrovascular accident (CVA), Retinal artery occlusion Disposition: OTHER INSTITUTION NOT DEFINED Is patient prescribed a controlled substance at d/c from ED?: No Referrals: Oscar Spence MD [Primary Care Provider] - 1-2 days Time of Disposition: 16:27 - Out of Hospital Transfer - Req. Specs Out of Hospital Transfer - Requested Specifics: Neurological ICU
[2019-08-18 14:31] LABS: Basophils # (A) 0.1 k/uL (0-0.2); Basophils % (A) 1 %; Eosinophils # (A) 0.3 k/uL (0-0.7); Eosinophils % (A) 5 %; HCT 44.3 % (39.0-53.0); HGB 15.4 gm/dL (13.0-17.5); Lymphocytes # (A) 1.5 k/uL (1.0-4.8); Lymphocytes % (A) 22 %; MCH 30.1 pg (25.0-35.0); MCHC 34.6 g/dL (31.0-37.0); MCV 86.8 fL (80.0-100.0); Mean Platelet Volume 6.4; Monocytes # (A) 0.5 k/uL (0-1.0); Monocytes % (A) 7 %; Neutrophils # (A) 4.1 k/uL (1.3-7.7); Neutrophils % (A) 62 %; Platelet Count 205 k/uL (150-450); RBC 5.11 m/uL (4.30-5.90); RDW 13.9 % (11.5-15.5); WBC 6.6 k/uL (3.8-10.6)
[2019-08-18 14:32] LABS: ALT 21 U/L (21-72); AST 25 U/L (17-59); African American GFR (CKD) >90 (>60 ml/min/1.73 sqM); Albumin 4.2 g/dL (3.5-5.0); Alkaline Phosphatase 72 U/L (38-126); Anion Gap 8 mmol/L; Blood Urea Nitrogen 16 mg/dL (9-20); Calcium 9.2 mg/dL (8.4-10.2); Carbon Dioxide 23 mmol/L (22-30); Chloride 109 mmol/L (98-107); Glucose 107 mg/dL (74-99); Non-African American GFR(CKD) 82 (>60 ml/min/1.73 sqM); Potassium 4.6 mmol/L (3.5-5.1); Sodium 140 mmol/L (137-145); Total Bilirubin 0.7 mg/dL (0.2-1.3); Total Protein 7.3 g/dL (6.3-8.2)
[2019-08-18 14:35] LABS: Partial Thromboplastin Time 24.9 sec (22.0-30.0); Prothrombin Time 10.3 sec (9.0-12.0)
[2019-08-18 14:59] VITALS: RESP 16
--- NOTE | 2019-08-18 15:15 | XR ---
EXAMINATION TYPE: XR chest 2V DATE OF EXAM: 08/18/2019 COMPARISON: 02/22/2019 HISTORY: Altered mental status TECHNIQUE: Frontal and lateral views of the chest are obtained. FINDINGS: There is no focal air space opacity, pleural effusion, or pneumothorax seen. Chronic left basilar platelike atelectasis. The cardiac silhouette size is mildly enlarged. The osseous structur es are intact. Minimal degenerative changes of the spine. IMPRESSION: No acute cardiopulmonary process. Platelike left basilar atelectasis.
--- NOTE | 2019-08-18 15:41 | CT ---
EXAMINATION TYPE: CT brain wo con DATE OF EXAM: 08/18/2019 COMPARISON: None HISTORY: Right sided visual disturbance. CT DLP: 1190 mGycm Automated exposure control for dose reduction was used. FINDINGS: Ventricular system is compatible with the patient's age. There is no midline shift or mass effect. Calvarium is intact. There is no acute intracranial hemorrhage. Area of low attenuation in the left basal ganglia suggest remote ischemia. Partially empty sella turcica. Right carotid artery is asymmetric relative to the left within the carotid canal suspect right caroti d artery occlusion. IMPRESSION: 1. 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 2. Mild degenerative change with no evidence of acute intracranial hemorrhage or mass effect. 3. Area of low attenuation within the left basal ganglia measuring 7 mm most likely in the basis of a n area of previous ischemia. If there is concern for acute ischemia correlate with MRI as clinically warranted.
--- NOTE | 2019-08-18 15:46 | CT ---
EXAMINATION TYPE: CT angio head neck DATE OF EXAM: 08/18/2019 HISTORY: Right sided visual disturbance. COMPARISON: None CT DLP: 573.7 mGycm. Automated Exposure Control for Dose Reduction was Utilized. TECHNIQUE: CTA scan of the neck is performed with IV Contrast, patient injected with 65 mL of Isovue 370, axial images are obtained, coronal and sagittal reformatted images are reviewed. Three-D recons tructed images are created on an independent workstation and reviewed. Source images are reviewed. FINDINGS: Carotid/Vascular Structures: There is a three-vessel arch. Vertebral arteries are codominant. 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 Plaque and calcification is at the left carotid bifurcation. Significant flow-limiting stenosis is no t identified proximal left internal carotid artery. Cervical of [place]: Vertebral basilar system appears normal. Posterior cerebral vasculature is unrema rkable. Posterior communicating arteries are absent. Right internal carotid artery has some retrograde fill to the ophthalmic artery. Left internal caroti d artery bifurcates normally into A1 and M1 segments. The anterior communicating artery is patent. A 2 segments appear normal. Right middle cerebral artery branching appears normal. Right A1 segment is somewhat small. Left middle cerebral artery branches are normal. Other: Three-D reconstructed images are reviewed. The right internal carotid artery is absent. The ri ght A1 segment is small. IMPRESSION: 1. 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 2. [place] of [place] as discussed above
[2019-08-18] MEDS ORDERED: TICAGRELOR 90 MG TAB PO STA (16:20)
[2019-08-18] MEDS ORDERED: ASPIRIN 81 MG PO STA (16:20)
[2019-08-18] MEDS ORDERED: SODIUM CHLORIDE 0.9% 1,000 ML IV STA (16:22)
[2019-08-18] MEDS: ATORVASTATIN 80 MG TAB PO STA ×2 (16:43→17:11)
[2019-08-18 18:54] VITALS: BP 179/99; PULSE 68
== END 2019-08-18 19:00 | disposition other institution (70) ==
LOC: EC 13:29
DX: I63.9 Cerebral infarction, unspecified (principal); R29.700 NIHSS score 0; H34.9 Unspecified retinal vascular occlusion; I25.10 Atherosclerotic heart disease of native coronary artery without angina pectoris; E78.5 Hyperlipidemia, unspecified; I25.2 Old myocardial infarction; Z95.5 Presence of coronary angioplasty implant and graft; Z87.891 Personal history of nicotine dependence; Z79.82 Long term (current) use of aspirin; Z79.02 Long term (current) use of antithrombotics/antiplatelets; Z79.899 Other long term (current) drug therapy; Z53.29 Procedure and treatment not carried out because of patient's decision for other reasons
CPT/HCPCS: 36415; 93005; 80053; 84484; 85025; 85610; 85730; 71046; 70496; 70450; 70498; 99285; 96360; Q9967

== ENCOUNTER → 2019-09-28 | Day surgery (SDC) | payer MEDICARE ==
[2019-09-24 11:56] VITALS: BMI 30.3
[~2019-09-28] MED LIST: LIDOCAINE 1% INJ 10MG/ML (20 ML MDV) ONE; LIDOCAINE 1% INJ 10MG/ML (20 ML MDV) SQ ONE; SODIUM CHLORIDE 0.9% 1,000 ML IV SCH; SODIUM CHLORIDE 0.9% 500 ML 500 ML IV ONE
[2019-09-28 10:03] VITALS: RESP 16; TEMP 97.5
--- NOTE | 2019-09-28 13:36 | P.PCN ---
Preoperative Diagnosis: Loop monitor implant Primary physicians: Dr. gardner Trouble Clerk: Dr. Biggs Indication: Atrial fibrillation, syncope Patient was brought to the EP lab in a fasting state. Written informed consent was obtained prior to the procedure. The left pectoral area was prepped and draped per protocol. Intravenous antibiotic was administered preoperatively. A subcutaneous Loop monitor was implanted successfully and the wound was closed per protocol. The device was programmed to detect significant eren- arrhythmic and tachy-arrhythmic events, per protocol. Device and programming details: A. fib protocol Patient underwent EP procedure under conscious sedation/moderate sedation, monitoring of the level of consciousness and physiologic parameters including but not limited to vital signs and oxygenation. Patient tolerated the procedure well without any acute complications. Start time: 1122 Stop time: 1141
--- NOTE | 2019-09-28 13:39 | P.PRLE ---
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 Hopefully this helps us clarify his diagnosis. Thank you for entrusting me with the care of the patient Warm regards Sincerely Darrion Biggs
[2019-09-28 14:45] VITALS: BP 141/70; PULSE 66
== END ==
LOC: CATHEP 09:17
PROVIDERS: ATTEND Internal Medicine Clinical Cardiac Electrophysiology
DX: I48.91 Unspecified atrial fibrillation (principal); R55 Syncope and collapse; I25.10 Atherosclerotic heart disease of native coronary artery without angina pectoris; I25.5 Ischemic cardiomyopathy; E78.5 Hyperlipidemia, unspecified; I65.21 Occlusion and stenosis of right carotid artery; Z79.82 Long term (current) use of aspirin; Z79.02 Long term (current) use of antithrombotics/antiplatelets; Z79.899 Other long term (current) drug therapy; Z95.5 Presence of coronary angioplasty implant and graft; Z82.49 Family history of ischemic heart disease and other diseases of the circulatory system; I10 Essential (primary) hypertension
CPT/HCPCS: 33285; C1764; J0690; J2001

== ENCOUNTER → 2021-07-13 | Outpatient (CLI) | payer MEDICARE ==
--- NOTE | 2021-07-13 10:42 | US ---
EXAMINATION TYPE: US mass soft tissue chest/back DATE OF EXAM: 07/13/2021 COMPARISON: NONE CLINICAL HISTORY: R22.2 Localized swelling, mass and lump, trunk. Palpable area with bruising left upper trunk. Scanning was performed directly over palpable, left upp er trunk. There is a complex area measuring 1.8 x 0.9 x 1.7 cm, uncertain etiology. IMPRESSION: There is a complex area measuring 1.8 x 0.9 x 1.7 cm, uncertain etiology.
== END | disposition home or self-care (01) ==
LOC: RADUSWWP 10:12
PROVIDERS: ATTEND Family Medicine
DX: R22.2 Localized swelling, mass and lump, trunk (principal)

== ENCOUNTER 2023-08-14 12:12 | Day surgery (SDC) | payer MEDICARE ==
[~2023-08-14 12:12] MED LIST changes: -LIDOCAINE 1% INJ 10MG/ML (20 ML MDV) ONE; -LIDOCAINE 1% INJ 10MG/ML (20 ML MDV) SQ ONE; -SODIUM CHLORIDE 0.9% 500 ML 500 ML IV ONE
[2023-08-14 13:15] VITALS: BP 140/86; PULSE 65; RESP 16; TEMP 97.1
[2023-08-14] MEDS ORDERED: LIDOCAINE 1% INJ 10MG/ML (20 ML MDV) ONE (15:02)
[2023-08-14] MEDS ORDERED: LIDOCAINE 1% INJ 10MG/ML (20 ML MDV) SQ ONE (15:15)
[2023-08-14] MEDS ORDERED: IV FLUID CONTINUATION 1,000 ML IV ONE (15:15)
--- NOTE | 2023-08-21 08:01 | P.EPPROC ---
- EP Procedure Note Electrophysiology Procedure Note: Procedure: Loop explant under sedation and local anesthesia. Diagnosis: Loop monitor at [facility] Patient was brought to the EP lab in a fasting state. Written informed consent was obtained prior to the procedure. The subcutaneous device was successfully explanted under local anesthesia. Preoperative antibiotics were administered. The wound was closed in layers and dressed per protocol. Result: Successful loop monitor explantation.
== END 2023-08-14 16:12 | disposition home or self-care (01) ==
LOC: CATHEP 12:12
PROVIDERS: ATTEND Internal Medicine Clinical Cardiac Electrophysiology
DX: I25.10 Atherosclerotic heart disease of native coronary artery without angina pectoris (principal); E78.5 Hyperlipidemia, unspecified; I48.0 Paroxysmal atrial fibrillation; I25.5 Ischemic cardiomyopathy; I35.0 Nonrheumatic aortic (valve) stenosis; I47.19 Other supraventricular tachycardia; Z86.73 Personal history of transient ischemic attack (TIA), and cerebral infarction without residual deficits; Z79.02 Long term (current) use of antithrombotics/antiplatelets; Z79.01 Long term (current) use of anticoagulants; Z79.899 Other long term (current) drug therapy
CPT/HCPCS: 33286; J0690; J2001